=== PATIENT | male | born 1945 | race Caucasian/White ===

== ENCOUNTER 2020-02-04 12:44 | Emergency (ER) | payer OTHER, SELFPAY ==
[2020-02-04] VITALS (9 sets, daily range): BP systolic 108–131; BP diastolic 63–77; PULSE 61–89; RESP 14–22; TEMP 36.6; O2SAT 93–96
--- NOTE | ~2020-02-04 | XR_ITS ---
EXAMINATION: XR chest 1V portable DATE: 02/04/2020 13:42 INDICATION: Shortness of breath. TECHNIQUE: A single frontal view of the chest was obtained on 2 radiographs. COMPARISON: Chest 2 views 12/26/2014, CT abdomen and pelvis 03/28/2019, chest CT 07/06/2018 FINDINGS: The lungs are hyperexpanded, consistent with emphysema. There are airspace opacities in the mid and lower lung zones. No pleural effusion or pneumothorax. The heart size is normal. IMPRESSION: 1. Airspace opacities in the mid and lower lung zones, consistent with atelectasis/scarring versus pn eumonia. 2. Emphysema. Reviewed, dictated and finalized at location A. T OFFICER IMPRESSION: 1. Airspace opacities in the mid and lower lung zones, consistent with atelecta sis/scarring versus pneumonia. 2. Emphysema.
--- NOTE | 2020-02-04 12:53 | ECG_ITS ---
Measurements Intervals [place] Rate: 72 P: [place]: 0 QRS: -12 QRSD: 94 T: 6 QT: 394 QTc: 433 Interpretive Statements ATRIAL FIBRILLATION DELAYED PRECORDIAL R/S TRANSITION BASELINE WANDER- V4-V6 ABNORMAL ECG Electronically Signed On 02-04-2020 13:17:19 COMMUNITY SERVICE OFFICER by Jef Camacho D.O.
[2020-02-04 13:13] LABS: Basophils Percent Auto 0.2 % (0.2-1.2); Hematocrit 46.6 % (42.0-52.0); Hemoglobin 15.6 g/dL (14.0-18.0); Immature Granulocyte Absolute 0.02 K/mm3 (0.00-0.031); Immature Granulocyte Percent A 0.4 % (0-0.5); Lymphocytes Absolute Auto 0.62 K/mm3 (0.9-3.2); Lymphocytes Percent Auto 12.3 % (18.3-44.2); Mean Corpuscular HGB Conc 33.5 g/dl (32-36); Mean Corpuscular Volume 92.5 fl (80-100); Mean Platelet Volume 9.9 fl (7.4-10.4); Monocytes Absolute Auto 0.3 K/mm3 (0.1-0.6); Monocytes Percent Auto 5.3 % (2.6-8.5); Neutrophils Absolute Auto 4.1 K/mm3 (1.3-6.7); Neutrophils Percent Auto 81.8 % (45.5-73.1); Platelet Count Result 154 k/mm3 (150-375); Red Blood Count 5.04 M/mm3 (4.6-6.20); Red Cell Distribution Width 13.7 % (11.5-14.5); White Blood Count 5.1 K/mm3 (4.5-10.0)
[2020-02-04 13:41] LABS: Anion Gap 8 mmol/L (8-16); Blood Urea Nitrogen 15 mg/dL (9-20); Calcium 8.6 mg/dL (8.4-10.2); Carbon Dioxide 29 mmol/L (22-30); Chloride 99 mmol/L (98-107); Estimated CRCL calculation 79 ml/min; Estimated Glomerular Filt Rate > 60; Glucose 106 mg/dL (75-110); Sodium 136 mmol/L (137-145)
[2020-02-04 13:44] LABS: Potassium 4.5 mmol/L (3.4-5.0)
[2020-02-04] MEDS: SODIUM CHLORIDE 0.9% IV 1,000 ML 999 ML IV CONT (15:04)
--- NOTE | 2020-02-04 16:29 | ED.GENADULT ---
HPI - General Adult General Chief complaint: Shortness of Breath/Dyspnea Stated complaint: fever, diarrhea, sob Time Seen by Provider: 02/04/20 12:58 Source: patient Mode of arrival: ambulatory Limitations: no limitations History of Present Illness HPI narrative: 74-year-old with a history of hypertension, diabetes, COPD, GERD, Afib on Xarelto here with complaints of not feeling well occasional shortness of breath. Patient states that he lost his appetite, feels weak had occasional nausea. Patient states that he was tested for Covid approximately 10 days ago and it was negative however his and daughter both have Covid at this time. He presently denies any chest pain. He feels dehydrated. Onset (ago): day(s) (6) Exacerbating factors: none Associated symptoms: shortness of breath Related Data Home Medications Medication Instructions Recorded Confirmed fluticasone furoate-vilanterol INHALATION 03/28/19 [Breo Ellipta] losartan 03/28/19 nebivolol [Bystolic] mg 03/28/19 omeprazole 03/28/19 03/28/19 rivaroxaban [Xarelto] mg 03/28/19 Allergies Allergy/AdvReac Type Severity Reaction Status Date / Time diazepam Allergy Unknown Unknown Verified 02/04/20 13:39 Review of Systems Review of Systems: All systems reviewed & are unremarkable except as noted in HPI and below Constitutional: Constitutional: Reports no additional constitutional complaints Eyes: Eyes: Reports as per HPI ENT: Reports system reviewed and no additional complaints, except as documented Cardiovascular: Cardiovascular: Reports no additional cardiovascular complaints Gastrointestinal: Gastrointestinal: Reports no additional gastrointestinal complaints Musculoskeletal: Musculoskeletal: Reports no additional musculoskeletal complaints Neurologic: Reports system reviewed and no additional complaints, except as documented [facility] Past Medical History Medical History (Updated 02/04/20 @ 16:46 by Dakota Tapia MD) Arthritis Bladder cancer CHF (congestive heart failure) Clavicle fracture Closed left arm fracture COPD (chronic obstructive pulmonary disease) DDD (degenerative disc disease) GERD (gastroesophageal reflux disease) Hemorrhoids HTN (hypertension) Nasal fracture Nasal septal deviation Pulmonary embolism Sleep apnea Surgical History Surgical History H/O spinal fusion L3-L5 H/O transurethral resection of prostate History of cardiac catheterization History of left hip replacement History of left knee replacement History of right hip replacement Hx of cholecystectomy Hx of tonsillectomy Family History Family History Father Family history of malignant neoplasm Other Diabetes mellitus Social History Social History Years smoked: 50 Smoking status: Former smoker Tobacco type: cigarettes Second hand tobacco smoke exposure: Yes Smoking end date: 10/11/14 Additional smoking assessment comments: Pt smoked 2-3 packs per day for 50 years. Alcohol intake: current Exam Narrative: Exam Narrative: GENERAL: Well-appearing, well-nourished, and in no acute distress. HEAD: Normocephalic, atraumatic.t. NECK: Supple. CHEST: Clear to auscultation. No respiratory distress. HEART: Regular rate and rhythm. No murmur heard. Normal peripheral pulses. ABDOMEN: Soft, nontender, nondistended, normal active bowel sounds. EXTREMITIES: Normal range of motion. No edema. SKIN: Warm, dry, no rash. NEURO: No focal deficits. Alert and oriented x3. PSYCH: Normal mood and affect. Course Course Emergency Course: Patient states he is feeling slightly better after IV fluids infusion. I did inform him about his lab work. Advised him to continue his home medication. Take Tylenol for fever. Vital Signs Vital signs: Vital Signs Temperature 36.6 C 02/04/20 13:08 Pul
== END 2020-02-04 16:55 | disposition home or self-care (01) ==
PROVIDERS: Emergency Provider Family Medicine
DX: B34.9 Viral infection, unspecified (principal); R53.1 Weakness; I48.91 Unspecified atrial fibrillation; J43.9 Emphysema, unspecified; M19.90 Unspecified osteoarthritis, unspecified site; I11.0 Hypertensive heart disease with heart failure; I50.9 Heart failure, unspecified; K21.9 Gastro-esophageal reflux disease without esophagitis; G47.30 Sleep apnea, unspecified; Z85.51 Personal history of malignant neoplasm of bladder
CPT/HCPCS: 36415; 71045; 80048; 85025; 93005; 99284; J7030

== ENCOUNTER 2020-02-14 09:07 | Emergency (ER) | payer OTHER, SELFPAY ==
--- NOTE | ~2020-02-14 | CT_ITS ---
EXAMINATION: CTA chest PE protocol DATE: 02/14/2020 12:11 LONG FILLER CIGAR ROLLER MACHINE INDICATION: Shortness of breath TECHNIQUE: Computed tomographic angiography (CTA) of the chest was performed with 100 mL Omnipaque-35 0 intravenous contrast. The dose-length product was 1138.13 mGy-cm. Maximum intensity projection 3D-r econstructions of the aorta and other arteries were constructed by the technologist on a separate wor kstation. Automated exposure control and iterative reconstruction technique were employed. COMPARISON: CT dated 07/06/2018. FINDINGS: Study is technically adequate without evidence for pulmonary embolism. Small left pleural e ffusion. Borderline heart size. There is atherosclerosis of the aorta and coronary arteries. Severe emphysema. Patchy groundglass opacities are identified in both lungs, suspicious for pneumonia . Mild right hilar lymphadenopathy, likely reactive. IMPRESSION: 1. No evidence for pulmonary embolism. 2: Patchy groundglass opacities of both lungs, suspicious for pneumonia. 3: Severe emphysema. 4: Mild right hilar lymphadenopathy, likely reactive. Reviewed, dictated and finalized at location B. FILLER CIGAR ROLLER MACHINE
--- NOTE | ~2020-02-14 | XR_ITS ---
EXAMINATION: XR chest 1V portable DATE: 02/14/2020 10:02 INDICATION: Shortness of breath. COVID-19 pneumonia. TECHNIQUE: A single frontal view of the chest was obtained on 2 radiographs. COMPARISON: Chest single view 01/31/2020, chest 2 views 11/26/2014, CT abdomen and pelvis 03/28/2019 FINDINGS: There are airspace opacities in the mid and lower lung zones. No pleural effusion or pneumo thorax. Cardiomegaly is noted. IMPRESSION: 1. Stable airspace opacities in the mid and lower lung zones, consistent with pneumonia. 2. Cardiomegaly. Reviewed, dictated and finalized at location A. EWATER TECHNICIAN IMPRESSION: 1. Stable airspace opacities in the mid and lower lung zones, consistent with p neumonia. 2. Cardiomegaly.
--- NOTE | 2020-02-14 09:42 | ECG_ITS ---
Measurements Intervals [place] Rate: 85 P: [place]: 0 QRS: -6 QRSD: 93 T: 31 QT: 355 QTc: 423 Interpretive Statements ATRIAL FIBRILLATION BORDERLINE T WAVE ABNORMALITY- INFERIOR LEADS BASELINE ARTIFACT- I, II, III, AVR, AVL, AVF, V1-V3 ABNORMAL ECG Electronically Signed On 02-14-2020 10:41:02 TOBACCO CLASSER by Jef Camacho D.O.
[2020-02-14 09:43] VITALS: BP 138/90; PULSE 84; RESP 26; TEMP 37.2; O2SAT 98
[2020-02-14 09:49] VITALS: PULSE 84
[2020-02-14 09:52] LABS: Basophils Percent Auto 0.2 % (0.2-1.2); Hematocrit 41.4 % (42.0-52.0); Hemoglobin 13.8 g/dL (14.0-18.0); Immature Granulocyte Absolute 0.15 K/mm3 (0.00-0.031); Immature Granulocyte Percent A 0.9 % (0-0.5); Lymphocytes Absolute Auto 0.76 K/mm3 (0.9-3.2); Lymphocytes Percent Auto 4.3 % (18.3-44.2); Mean Corpuscular HGB Conc 33.3 g/dl (32-36); Mean Corpuscular Hemoglobin 30.9 pg (26-34); Mean Corpuscular Volume 92.6 fl (80-100); Mean Platelet Volume 9.6 fl (7.4-10.4); Monocytes Absolute Auto 1.1 K/mm3 (0.1-0.6); Monocytes Percent Auto 6.5 % (2.6-8.5); Neutrophils Absolute Auto 15.4 K/mm3 (1.3-6.7); Neutrophils Percent Auto 88.1 % (45.5-73.1); Platelet Count Result 351 k/mm3 (150-375); Red Blood Count 4.47 M/mm3 (4.6-6.20); Red Cell Distribution Width 13.6 % (11.5-14.5); White Blood Count 17.5 K/mm3 (4.5-10.0)
[2020-02-14 10:26] LABS: Anion Gap 6 mmol/L (8-16); Blood Urea Nitrogen 12 mg/dL (9-20); Calcium 8.6 mg/dL (8.4-10.2); Carbon Dioxide 29 mmol/L (22-30); Chloride 101 mmol/L (98-107); Estimated CRCL calculation 80 ml/min; Estimated Glomerular Filt Rate > 60; Glucose 122 mg/dL (75-110); Potassium 4.7 mmol/L (3.4-5.0); Sodium 136 mmol/L (137-145)
[2020-02-14 10:28] VITALS: BP 123/83; PULSE 106; RESP 24; O2SAT 93
[2020-02-14 10:48] VITALS: TEMP 37.7
[2020-02-14] MEDS: FAMOTIDINE 20 MG/2 ML VIAL IV PUSH (10:48)
[2020-02-14 10:52] LABS: Alveolar/Arterial O2 Gradient 49.5 mmHg; Base Excess ABG 2.7 mEq/l (+/-2.0); Carboxyhemoglobin 1.3 % THb (0-2.0); Fractional Inspired Oxygen 21 %; HCO3 ABG 24.7 mEq/l (22.0-26.0); Methemoglobin ABG 0.2 %THb (0-1.5); Oxygen Content ABG 18.7 %vol (16.0-22.0); Oxygen Saturation ABG 94.5 % (95.0-100.0); Oxyhemoglobin 92.4 % THb (90.0-100.0); PCO2 ABG 30.9 mmHg (35.0-45.0); PO2 ABG 63.2 mmHg (80.0-100.0); PO2 FiO2 Ratio Arterial Blood 3.01 %; Reduced Hemoglobin 6.1 %THb (0-5.0); Total Hemoglobin 14.4 g/dL (12.0-18.0); pH ABG 7.521 (7.350-7.450)
[2020-02-14 10:53] LABS: Device ROOM AIR; Modified Allen's Test Pass; Site Drawn RIGHT RADIAL
[2020-02-14 11:05] LABS: INR 2.4; Lactic Acid Reflex 1.2 mmol/L (0.7-2.1); Prothrombin Time 26.6 Seconds (11.1-14.7)
[2020-02-14 11:05] LABS: Add Urine Microscopic? YES; Appearance Urine Clear (Clear); Bacteria Urine Trace /hpf; Bilirubin Urine Negative (Negative); Blood Urine Negative (Negative); Color Urine Yellow (Yellow); Glucose Urine UA Negative (Negative); Ketones Urine Negative (Negative); Leukocyte Esterase Ur Negative LEU/UL (Negative); Nitrate Urine Negative (Negative); Protein Urine 1+ mg/dL (Negative); RBC Urine 0-2 /hpf (0-2); Specific Grav Ur 1.012 (1.001-1.035); WBC Urine 0-3 /hpf
[2020-02-14 11:06] LABS: Partial Thromboplastin Time 41.5 SECONDS (22.3-36.8)
[2020-02-14 11:08] LABS: D Dimer 2.28 ug/mL (<0.48)
--- NOTE | 2020-02-14 11:08 | ED.GENADULT ---
HPI - General Adult General Chief complaint: Shortness of Breath/Dyspnea Stated complaint: Covid +, SOB Time Seen by Provider: 02/14/20 10:06 Source: patient Mode of arrival: ambulatory Limitations: no limitations History of Present Illness HPI narrative: Patient is a 74-year-old male who presents to emergency department with dyspnea noting dyspnea at rest and with activity worsened last night is felt ill for 4 weeks had recent diagnosis of Covid has a history of COPD as well as atrial fibrillation notes that he has been compliant with his medication patient notes that last night he had increase difficulty with breathing presents to emergency department patient denies vomiting does note loose stools notes some irritation of the chest worse with coughing. Patient denies tobacco abuse on arrival patient is ill-appearing but in no apparent distress patient has been taking [id number] medications with minimal improvement Related Data Home Medications Medication Instructions Recorded Confirmed fluticasone furoate-vilanterol INHALATION 03/28/19 [Breo Ellipta] losartan 03/28/19 nebivolol [Bystolic] mg 03/28/19 omeprazole 03/28/19 03/28/19 rivaroxaban [Xarelto] mg 03/28/19 Allergies Allergy/AdvReac Type Severity Reaction Status Date / Time diazepam Allergy Unknown Unknown Verified 02/14/20 09:45 Review of Systems Review of Systems: All systems reviewed & are unremarkable except as noted in HPI and below PMFSH Past Medical History Medical History Arthritis Bladder cancer CHF (congestive heart failure) Clavicle fracture Closed left arm fracture COPD (chronic obstructive pulmonary disease) DDD (degenerative disc disease) GERD (gastroesophageal reflux disease) Hemorrhoids HTN (hypertension) Nasal fracture Nasal septal deviation Pulmonary embolism Sleep apnea Surgical History Surgical History H/O spinal fusion L3-L5 H/O transurethral resection of prostate History of cardiac catheterization History of left hip replacement History of left knee replacement History of right hip replacement Hx of cholecystectomy Hx of tonsillectomy Family History Family History Father Family history of malignant neoplasm Other Diabetes mellitus Social History Social History Years smoked: 50 Smoking status: Former smoker Tobacco type: cigarettes Second hand tobacco smoke exposure: Yes Smoking end date: 10/11/14 Additional smoking assessment comments: Pt smoked 2-3 packs per day for 50 years. Alcohol intake: current Gender identity (if verbalized by the patient): Male Exam Narrative: Exam Narrative: GENERAL: Ill-appearing, well-nourished, and in no acute distress. HEAD: Normocephalic, atraumatic. EYES: PERRLA and EOMI. ENT: Nares clear, no rhinorrhea or epistaxis. Mucous membranes moist. NECK: Supple. No adenopathy or masses. CHEST: Diminished on auscultation. No respiratory distress. No wheezes rales or rhonchi HEART: Irregularly irregular rate and rhythm, normal rate. No murmur heard. Normal peripheral pulses. EXTREMITIES: Normal range of motion. No edema. SKIN: Warm, dry, no rash. NEURO: No focal deficits. Alert and oriented x3. PSYCH: Normal mood and affect. Course Course Emergency Course: Patient evaluated in the emergency department felt appropriate for outpatient reevaluation given medications in the ER to include steroids and fluids patient is afebrile nontoxic-appearing at this time in no distress. Patient will continue to use his albuterol inhaler will have some additional medications added advised to follow with primary care and given reasons to return Vital Signs Vital signs: Vital Signs Temperature 99 F 02/14/20 09:43 Pulse Rate 84 02/14/20 09:43
[2020-02-14 11:19] LABS: CRP 20.8 mg/dL (<1.0)
[2020-02-14 11:44] LABS: Troponin I < 0.012 ng/mL (0.000-0.034)
[2020-02-14 14:18] VITALS: BP 109/66; PULSE 88; RESP 16; O2SAT 98
== END 2020-02-14 14:18 | disposition home or self-care (01) ==
PROVIDERS: Emergency Medicine Emergency Medical Services; Emergency Provider Emergency Medicine
DX: U07.1 COVID-19 (principal); I48.91 Unspecified atrial fibrillation; Z79.01 Long term (current) use of anticoagulants; Z85.51 Personal history of malignant neoplasm of bladder; I50.9 Heart failure, unspecified; K21.9 Gastro-esophageal reflux disease without esophagitis; I11.0 Hypertensive heart disease with heart failure; Z86.711 Personal history of pulmonary embolism; G47.30 Sleep apnea, unspecified; Z96.643 Presence of artificial hip joint, bilateral; Z96.652 Presence of left artificial knee joint; Z98.1 Arthrodesis status; Z87.891 Personal history of nicotine dependence; R91.8 Other nonspecific abnormal finding of lung field; I51.7 Cardiomegaly; R94.31 Abnormal electrocardiogram [ECG] [EKG]
CPT/HCPCS: 36415; 36600; 71045; 71275; 80048; 81001; 82375; 82805; 83050; 83605; 84484; 85025; 85380; 85610; 85730; 86140; 87040; 93005; 96365; 96375; 99284; J0131; Q9967

== ENCOUNTER 2020-07-03 09:35 | Outpatient (CLI) | payer OTHER, SELFPAY ==
[2020-07-03 11:00] VITALS: O2SAT 95
[2020-07-03 11:05] VITALS: O2SAT 93
[2020-07-03 11:15] VITALS: O2SAT 94
--- NOTE | 2020-07-05 13:50 | WPDPFTINT ---
PFT Interpretation This PFT met all criteria for ATS standards and reproducibility FEV/FVC post bronchodilator 64% FEV1 70% FVC 83% TLC 74% RV 66% RV/TLC 33% DLCO 58% when adjusted for alveolar volume but not adjusted for hemoglobin Flow volume loops showed significant expiratory coving Impression: probable moderate airflow obstruction with a restrictive ventilatory defect as well as moderately reduced diffusion capacity. Clinical correlation is advised. PFT Procedure Performed PFT Procedure Performed Spirometry with Pre/Post Bronchodilator Plethysmography (Lung Vol) Diffusing Cap (DLCO) Flow Vol Loop
== END 2020-07-03 09:36 | disposition home or self-care (01) ==
PROVIDERS: Visit Provider Internal Medicine Pulmonary Disease
DX: J44.9 Chronic obstructive pulmonary disease, unspecified (principal); R06.00 Dyspnea, unspecified; R94.2 Abnormal results of pulmonary function studies
CPT/HCPCS: 94060; 94618; 94726; 94729

== ENCOUNTER → 2020-07-03 12:27 | Outpatient (CLI) | payer OTHER, SELFPAY ==
--- NOTE | ~2020-07-03 | CT_ITS ---
EXAMINATION: CT diagnostic chest wo con DATE: 07/03/2020 12:51 INDICATION: Shortness of breath. Covid 19 infection in March 2020. History of COPD. TECHNIQUE: Computed tomography (CT) of the chest was performed without intravenous contrast. Automate d exposure control and iterative reconstruction technique were employed. Exam dose: 701.04 mGy-cm to roro exam DLP. COMPARISON: 02/2020 CT pulmonary scan FINDINGS: Cardiomegaly. No pericardial effusion. Mild thoracic aortic aneurysm, the ascending aorta measuring up to 4.5 cm diameter, the aortic arch u p to 3.3 cm diameter. There is aortic and great vessel calcification. There are aortopulmonary window and bilateral calcified hilar nodes consistent with old pulmonary gra nulomatous disease. There are calcified splenic granulomas as well. No hilar or mediastinal mass lesi on or lymphadenopathy. Prominent emphysematous changes are noted, more severe in the upper lobes. Stable mild bilateral apic al, middle lobe scarring. There is mild infiltrate, atelectasis and/or scarring at the lung bases, meghan th lower lobes. No pleural effusion or pneumothorax. There is severe bilateral glenohumeral osteoarthritis. Diffuse idiopathic skeletal hyperostosis of the thoracolumbar spine and severe degenerative disc dise ase of the included lower cervical spine. IMPRESSION: Prominent emphysema Bilateral apical, middle lobe and probable lower lobe scarring. Bibasilar mild infiltrate and/or atel ectasis is suggested. Mild thoracic aortic aneurysm Reviewed, dictated and finalized at Location A. Reviewed, dictated and finalized at location A. IMPRESSION: Prominent emphysema Bilateral apical, middle lobe and probable lower lobe scarring. Bibasilar mild infiltrate and/or atelectasis is suggested. Mild thoracic aortic aneurysm
== END ==
PROVIDERS: Visit Provider Internal Medicine Pulmonary Disease
DX: U07.1 COVID-19 (principal); I71.2 Thoracic aortic aneurysm, without rupture; J43.9 Emphysema, unspecified
CPT/HCPCS: 71250

== ENCOUNTER → 2020-08-21 06:39 | Outpatient (CLI) | payer OTHER, SELFPAY ==
[2020-08-21 19:50] LABS: SARS-CoV-2 RNA PCR Negative
== END ==
PROVIDERS: PCP Family Medicine Sports Medicine
DX: R68.89 Other general symptoms and signs (principal); Z20.822 Contact with and (suspected) exposure to COVID-19
CPT/HCPCS: C9803; U0003; U0005

== ENCOUNTER → 2021-07-19 09:03 | Outpatient (CLI) | payer OTHER, SELFPAY ==
--- NOTE | ~2021-07-19 | CT_ITS ---
EXAMINATION: CT lung screening DATE: 07/19/2021 09:21 INDICATION: Personal history of nicotine dependence, prior smoker with 100 pack year history TECHNIQUE: Computed tomography (CT) of the chest was performed without intravenous contrast. The dose -length product (DLP) was 373.82 mGy-cm. Automated exposure control and iterative reconstruction tech [employer] were employed. COMPARISON: 07/03/2020 FINDINGS: There is moderate emphysema. There is a chronic area of rounded atelectasis in the left low er lobe. Areas of scarring are seen in the right middle lobe and lingula. The lungs are free of acute airspace opacities. No suspicious pulmonary nodules are identified. No pathologically enlarged thora cic lymph nodes are identified. The heart size is normal. The gallbladder is surgically absent. There is moderate thoracic spondylosis. IMPRESSION: 1. Lung-RADS category 1: Negative. Continue annual screening with noncontrast low-dose chest CT in 12 months. Reviewed, dictated and finalized at location A. IMPRESSION: 1. Lung-RADS category 1: Negative. Continue annual screening with noncontrast l ow-dose chest CT in 12 months.
== END ==
PROVIDERS: PCP Family Medicine Sports Medicine; Visit Provider Nurse Practitioner Family
DX: Z87.891 Personal history of nicotine dependence (principal)
CPT/HCPCS: 71271

== ENCOUNTER → 2022-01-26 07:47 | Outpatient (CLI) | payer OTHER, SELFPAY ==
--- NOTE | ~2022-01-26 | CT_ITS ---
EXAMINATION: CT diagnostic chest w con DATE: 01/26/2022 08:32 INDICATION: Thoracic aortic aneurysm without rupture, history of bladder cancer TECHNIQUE: Transaxial computed tomographic images of the chest were obtained after the administration of 75 cc of Omnipaque 350 intravenous contrast. The dose-length product (DLP) was 717.27 mGy-cm. Ite rative reconstruction was used. COMPARISON: 07/19/2021 FINDINGS: The ascending aorta measures up to 4.5 cm. There is no dissection. Moderate emphysema is no adeel. There are areas of scarring in the lingula and right middle lobe. There is chronic rounded atele ctasis in the left lower lobe without significant change. There is a 7 mm nodule in the right upper l obe on image 58. No pleural effusion or pneumothorax. No pathologically enlarged thoracic lymph nodes are identified. The heart size is normal. Calcified left hilar lymph nodes are consistent with old g ranulomatous disease. The gallbladder is surgically absent. There is a 3.5 cm cyst of the left kidney . There is moderate thoracic spondylosis. IMPRESSION: 1. Dilated ascending aorta measuring up to 4.5 cm without dissection. 2. 7 mm nodule of the right upper lobe. Follow-up low-dose CT in six months is recommended. Reviewed, dictated and finalized at location F. HROOM MONITOR
[2022-01-26 08:22] LABS: Estimated Glomerular Filt Rate > 60
== END ==
PROVIDERS: PCP Family Medicine Sports Medicine
DX: I71.20 Thoracic aortic aneurysm, without rupture, unspecified (principal); R91.1 Solitary pulmonary nodule
CPT/HCPCS: 71260; Q9967

== ENCOUNTER 2022-06-05 22:49 | Emergency (ER) | payer OTHER, SELFPAY ==
[2022-06-05] VITALS (11 sets, daily range): BP systolic 136–167; BP diastolic 82–120; PULSE 70–84; RESP 14–22; TEMP 36.4; O2SAT 91–97
--- NOTE | ~2022-06-05 | XR_ITS ---
Portable chest x-ray Comparison: 02/14/2020 Clinical History: Diaphoretic, shortness of breath Findings: Minimal haziness in the lungs is present, somewhat similar to prior exam. No definite pleu ral effusions. Cardiomediastinal silhouette is stable. Bones and soft tissues are unremarkable. Impression: Mild bibasilar and perihilar haziness. Correlate for mild pulmonary edema versus or possibly chronic pulmonary disease. Reviewed, dictated and finalized at location . Impression: Mild bibasilar and perihilar haziness. Correlate for mild pulmonary edema versu s or possibly chronic pulmonary disease.
--- NOTE | 2022-06-05 23:26 | ECG_ITS ---
Measurements Intervals [place] Rate: 73 P: [place]: 0 QRS: -11 QRSD: 104 T: 58 QT: 403 QTc: 445 Interpretive Statements ATRIAL FIBRILLATION ABNORMAL ECG COMPARED TO ECG 02/14/2020 09:39:23 NO SIGNIFICANT CHANGES Electronically Signed On 06-06-2022 6:47:52 CDT by Jef Camacho D.O.
[2022-06-05] MEDS: SODIUM CHLORIDE 0.9% IV 1,000 ML 999 ML IV CONT (23:33)
[2022-06-05 23:53] LABS: Basophils Percent Auto 0.5 % (0.2-1.2); Eosinophils Absolute Auto 0.2 K/mm3 (0-0.3); Hematocrit 45.1 % (42.0-52.0); Immature Granulocyte Absolute 0.04 K/mm3 (0.00-0.031); Immature Granulocyte Percent A 0.5 % (0-0.5); Lymphocytes Percent Auto 12.3 % (18.3-44.2); Mean Corpuscular HGB Conc 33.3 g/dl (32-36); Mean Corpuscular Volume 96.2 fl (80-100); Mean Platelet Volume 10.6 fl (7.4-10.4); Monocytes Absolute Auto 0.6 K/mm3 (0.1-0.6); Monocytes Percent Auto 7.8 % (2.6-8.5); Neutrophils Absolute Auto 5.6 K/mm3 (1.3-6.7); Neutrophils Percent Auto 76.9 % (45.5-73.1); Platelet Count Result 219 k/mm3 (150-375); Red Blood Count 4.69 M/mm3 (4.6-6.20); Red Cell Distribution Width 13.8 % (11.5-14.5); White Blood Count 7.3 K/mm3 (4.5-10.0)
[2022-06-06] VITALS (19 sets, daily range): BP systolic 102–160; BP diastolic 71–115; PULSE 61–81; RESP 13–26; O2SAT 92–98
[2022-06-06 00:02] LABS: Alanine Aminotransferase 26 U/L (6-50); Albumin Level 4.5 g/dL (3.5-5.1); Alkaline Phosphatase 103 U/L (38-126); Anion Gap 6 mmol/L (8-16); Aspartate Amino Transferase 30 U/L (17-59); Bilirubin,Total 1.2 mg/dL (0.2-1.3); Blood Urea Nitrogen 18 mg/dL (9-20); Calcium 8.8 mg/dL (8.4-10.2); Carbon Dioxide 28 mmol/L (22-30); Chloride 105 mmol/L (98-107); Estimated CRCL calculation 89 ml/min; Estimated Glomerular Filt Rate > 60; Glucose 114 mg/dL (65-110); Magnesium 2.3 mg/dL (1.6-2.3); Potassium 4.2 mmol/L (3.4-5.0); Sodium 139 mmol/L (137-145)
[2022-06-06 00:03] LABS: Lactic Acid Reflex 1.1 mmol/L (0.7-2.0)
[2022-06-06 00:14] LABS: Troponin I < 0.012 ng/mL (0.000-0.034)
[2022-06-06 00:16] LABS: INR 1.7; Partial Thromboplastin Time 38.1 SECONDS (22.3-36.8); Prothrombin Time 19.4 Seconds (11.1-14.7)
[2022-06-06 00:47] LABS: Appearance Urine Clear (Clear); Bilirubin Urine Negative (Negative); Blood Urine Negative (Negative); Color Urine Yellow (Yellow); Glucose Urine UA Negative (Negative); Ketones Urine Negative (Negative); Leukocyte Esterase Ur Negative LEU/UL (Negative); Nitrate Urine Negative (Negative); Protein Urine Negative (Negative); Specific Grav Ur 1.015 (1.001-1.035)
--- NOTE | 2022-06-06 01:03 | ED.GENADULT ---
HPI - General Adult General Chief complaint: Dizziness Stated complaint: Feeling faint Time Seen by Provider: 06/05/22 23:04 History of Present Illness HPI narrative: Patient is a 76-year-old gentleman who presents the emergency department with chief complaint of near syncope. Patient reports that he was sitting down and started to have a lightheaded sensation the patient states that he got very diaphoretic when this happened and reports that the symptoms have subsequently improved. Patient states he is intermittently having some episodes where he still feels lightheaded but denies chest pain or shortness of breath. Related Data Home Medications Medication Instructions Recorded Confirmed nebivolol 10 mg tablet (Bystolic) mg 03/28/19 01/03/22 omeprazole 20 mg capsule,delayed 03/28/19 01/03/22 release rivaroxaban 20 mg tablet (Xarelto) mg 03/28/19 01/03/22 losartan 50 mg tablet 50 mg PO DAILY 07/05/21 01/03/22 Allergies Allergy/AdvReac Type Severity Reaction Status Date / Time diazepam Allergy Unknown Unknown Verified 01/03/22 09:59 Review of Systems Review of Systems: A 10 system review of systems was completed on the patient and is negative except for what is stated in the HPI. Nursing and ancillary documentation was reviewed. [facility] Past Medical History Medical History Arthritis Bladder cancer CHF (congestive heart failure) Clavicle fracture Closed left arm fracture COPD (chronic obstructive pulmonary disease) DDD (degenerative disc disease) GERD (gastroesophageal reflux disease) Hemorrhoids HTN (hypertension) Nasal fracture Nasal septal deviation Pulmonary embolism Sleep apnea Surgical History Surgical History H/O spinal fusion L3-L5 H/O transurethral resection of prostate History of cardiac catheterization History of left hip replacement History of left knee replacement History of right hip replacement Hx of cholecystectomy Hx of tonsillectomy Family History Family History Father Family history of malignant neoplasm Other Diabetes mellitus Social History Social History Smoking packs per day: 3 Smoking cigarettes per day: 60.0 Years smoked: 50 Smoking pack-years: 150.00 Smoking status: Former smoker Tobacco type: cigarettes Second hand tobacco smoke exposure: Yes Smoking end date: 10/11/13 Additional smoking assessment comments: Pt smoked 2-3 packs per day for 50 years. Alcohol intake: current Drinks per week: 30 Gender identity (if verbalized by the patient): Male Exam Narrative: GENERAL: Well-appearing, well-nourished, and in no acute distress. HEAD: Normocephalic, atraumatic. EYES: PERRLA and EOMI. ENT: Nares clear, no rhinorrhea or epistaxis. Mucous membranes moist. NECK: Supple. CHEST: Clear to auscultation. No respiratory distress. HEART: Regular rate and rhythm. No murmur heard. Normal peripheral pulses. ABDOMEN: Soft, nontender, nondistended, normal active bowel sounds. EXTREMITIES: Normal range of motion. No edema. SKIN: Warm, dry, no rash. NEURO: No focal deficits. Alert and oriented x3. PSYCH: Normal mood and affect. Course Vital Signs Vital signs: Vital Signs Temperature 36.4 C 06/05/22 22:54 Pulse Rate 74 06/05/22 22:54 Respiratory Rate 20 06/05/22 22:54 Blood Pressure 167/98 H 06/05/22 22:54 Pulse Oximetry 97 06/05/22 22:54 Oxygen Delivery Room Air 06/05/22 22:54 Temperature 36.4 C 06/05/22 22:54 Pulse Rate 69 06/06/22 02:17 Respiratory Rate 13 06/06/22 02:17 Blood Pressure 146/71 H 06/06/22 02:17 Pulse Oximetry 97 06/06/22 02:17 Oxygen Delivery Room Air 06/05/22 23:05 Medical Decision Making MDM Narrative Medical decision making narr
[2022-06-06 01:36] LABS: Add Urine Microscopic? NO
[2022-06-06 02:55] LABS: Troponin I < 0.012 ng/mL (0.000-0.034)
== END 2022-06-06 03:21 | disposition home or self-care (01) ==
PROVIDERS: Emergency Provider Emergency Medicine; PCP Family Medicine Sports Medicine
DX: R55 Syncope and collapse (principal); I50.9 Heart failure, unspecified; J44.9 Chronic obstructive pulmonary disease, unspecified; I11.0 Hypertensive heart disease with heart failure; G47.30 Sleep apnea, unspecified; K21.9 Gastro-esophageal reflux disease without esophagitis; M19.90 Unspecified osteoarthritis, unspecified site; Z98.1 Arthrodesis status; Z90.79 Acquired absence of other genital organ(s); Z96.652 Presence of left artificial knee joint; Z96.643 Presence of artificial hip joint, bilateral; Z85.51 Personal history of malignant neoplasm of bladder; Z86.711 Personal history of pulmonary embolism; Z87.891 Personal history of nicotine dependence; Z79.01 Long term (current) use of anticoagulants; I48.91 Unspecified atrial fibrillation
CPT/HCPCS: 36415; 71045; 80053; 81003; 83605; 83735; 84484; 85025; 85610; 85730; 93005; 96360; 99283; J7030

== ENCOUNTER → 2022-07-29 13:01 | Outpatient (CLI) | payer OTHER, SELFPAY ==
--- NOTE | ~2022-07-29 | CT_ITS ---
EXAMINATION:CT diagnostic chest wo con DATE: 07/29/2022 13:23 INDICATION: Pulmonary nodule. TECHNIQUE: Computed tomography (CT) of the chest was performed without intravenous contrast. Automate d exposure control and iterative reconstruction technique were employed. The dose-length product (DLP ) was 661.98 mGy-cm. COMPARISON: Chest CT 01/26/2022 FINDINGS: There is moderate emphysema. There is mild scarring at left lung apex. There are chronic pe ripheral airspace opacities in the right middle lobe and lower lobes and lingula with septal thickeni ng, consistent with chronic lung disease. No bronchiectasis or honeycombing. The previously described right upper lobe nodule is no longer present. No pleural effusion. Cardiomegaly is noted. No pericar dial effusion. There are coronary artery calcifications. Calcified hilar and mediastinal lymph nodes are consistent with old granulomatous disease. There is ectasia of ascending aorta measuring 4.5 cm w ithout change. There is severe thoracic spondylosis. IMPRESSION: 1. Moderate emphysema and mild chronic lung disease. Reviewed, dictated and finalized at location A.
== END ==
PROVIDERS: PCP Nurse Practitioner Family; Visit Provider Nurse Practitioner Family
DX: R91.1 Solitary pulmonary nodule (principal); Z87.891 Personal history of nicotine dependence; J43.9 Emphysema, unspecified
CPT/HCPCS: 71250

== ENCOUNTER 2024-02-06 18:01 | Observation (INO) | payer OTHER, SELFPAY ==
--- NOTE | ~2024-02-06 | XR_ITS ---
EXAMINATION: XR chest 2V Exam Date/Time: 02/06/2024 18:47 DRILLING SUPERINTENDENT HISTORY: shortness of breath Comparison: 06/05/2022. RESULT: Lines, tubes, and devices: None. Lungs and pleura: Moderate diffuse reticular opacities with indistinct vessels. Mild bilateral costo phrenic angle blunting. Cardiomediastinal silhouette: Stable. Other: No acute osseous or upper abdominal finding. IMPRESSION: Moderate interstitial edema. Small bilateral pleural effusions. Reviewed, dictated and finalized at location K. LING SUPERINTENDENT
--- NOTE | ~2024-02-06 | CT_ITS ---
EXAMINATION:CT diagnostic chest w con DATE: 02/07/2024 14:21 INDICATION: Hypoxia. TECHNIQUE: Computed tomography (CT) of the chest was performed with 75 mL Omnipaque 350 intravenous c ontrast. Automated exposure control and iterative reconstruction technique were employed. The dose-le ngth product (DLP) was 708.53 mGy-cm. COMPARISON: Chest CT 07/29/2022 FINDINGS: There is moderate emphysema. There are centrilobular nodules in all lobes with a lower lung predominance, consistent with pneumonia. There is mild peripheral scarring in the inferior lungs. Th ere is mild bronchiectasis in the inferior lungs. No pleural effusion. Cardiomegaly is noted. There a re coronary artery calcifications. No pericardial effusion. There is mild mediastinal lymphadenopathy , likely reactive. There are changes of cholecystectomy. There is a 3.5 cm cyst in left kidney. Calci fications in the spleen are consistent with old granulomatous disease. There is severe thoracic and l umbar spondylosis. IMPRESSION: 1. Bilateral pneumonia with a lower lung predominance. 2. Moderate emphysema. 3. Mild mediastinal lymphadenopathy, likely reactive. Reviewed, dictated and finalized at location A. DIRECTOR
[2024-02-06 18:02] VITALS: BP 170/90; PULSE 92; RESP 33; TEMP 37.8; O2SAT 95
[2024-02-06 18:10] VITALS: O2SAT 93
--- NOTE | 2024-02-06 18:13 | ECG_ITS ---
Test Date: 2024-02-06 18:29:54 Measurements Intervals [place] Rate: 91 P: 0 TN: 0 QRS: -18 QRSD: 92 T: 69 QT: 334 QTc: 412 Interpretive Statements ATRIAL FIBRILLATION DELAYED PRECORDIAL R/S TRANSITION BORDERLINE ST-T WAVE ABNORMALITY- LAT/HIGH LAT LEADS BASELINE ARTIFACT- I, II, III, AVR, AVL, AVF ABNORMAL ECG No previous ECG available for comparison Electronically Signed On 02-06-2024 19:15:20 AUTOMOBILE ASSEMBLY SUPERVISOR by Jef Camacho D.O.
[2024-02-06 18:32] LABS: Basophils Absolute Auto 0.1 K/mm3 (0.0-0.1); Basophils Percent Auto 0.5 % (0.2-1.2); Eosinophils Percent Auto 0.2 % (0-4.4); Hematocrit 45.7 % (42.0-52.0); Immature Granulocyte Absolute 0.03 K/mm3 (0.00-0.031); Immature Granulocyte Percent A 0.3 % (0-0.5); Lymphocytes Absolute Auto 0.73 K/mm3 (0.9-3.2); Lymphocytes Percent Auto 7.6 % (18.3-44.2); Mean Corpuscular HGB Conc 32.8 g/dl (32-36); Mean Corpuscular Hemoglobin 30.8 pg (26-34); Mean Corpuscular Volume 93.8 fl (80-100); Mean Platelet Volume 9.9 fl (7.4-10.4); Monocytes Percent Auto 10.4 % (2.6-8.5); Neutrophils Absolute Auto 7.8 K/mm3 (1.3-6.7); Platelet Count Result 231 k/mm3 (150-375); Red Blood Count 4.87 M/mm3 (4.6-6.20); Red Cell Distribution Width 15.6 % (11.5-14.5); White Blood Count 9.6 K/mm3 (4.5-10.0)
[2024-02-06 18:48] LABS: Alanine Aminotransferase 21 U/L (6-50); Albumin Level 4.6 g/dL (3.5-5.1); Alkaline Phosphatase 112 U/L (38-126); Anion Gap 9 mmol/L (4-12); Aspartate Amino Transferase 41 U/L (17-59); Bilirubin,Total 1.8 mg/dL (0.2-1.3); Blood Urea Nitrogen 22 mg/dL (9-20); Calcium 9.1 mg/dL (8.4-10.2); Carbon Dioxide 27 mmol/L (22-30); Chloride 103 mmol/L (98-107); Estimated CRCL calculation 61 ml/min; Estimated Glomerular Filt Rate > 60; Glucose 111 mg/dL (65-110); Potassium 4.4 mmol/L (3.4-5.0); Sodium 139 mmol/L (137-145)
--- NOTE | 2024-02-06 19:32 | ED.SOB ---
HPI - SOB/Dyspnea General Chief Complaint: Shortness of Breath/Dyspnea Stated Complaint: SOB Time Seen by Provider: 02/06/24 18:24 History of Present Illness HPI Narrative: Patient is 78-year-old male who presents to the ER with shortness of breath. Associated with productive cough. Ongoing over the last week but markedly worsening over last day. He cannot walk 6 ft without being out of breath. He has been having fevers with alternating chills and sweats. No vomiting. Related Data Home Medications Medication Instructions Recorded Confirmed nebivolol 10 mg tablet (Bystolic) mg 03/28/19 11/02/23 omeprazole 20 mg capsule,delayed 03/28/19 11/02/23 release rivaroxaban 20 mg tablet (Xarelto) mg 03/28/19 11/02/23 losartan 100 mg tablet 100 mg PO DAILY 11/02/23 11/02/23 Allergies Allergy/AdvReac Type Severity Reaction Status Date / Time diazepam Allergy Unknown Unknown Verified 11/02/23 08:29 Review of Systems Review of Systems: All systems reviewed & are unremarkable except as noted in HPI and below Constitutional: Constitutional: Reports no additional constitutional complaints ENT: Reports system reviewed and no additional complaints, except as documented Cardiovascular: Cardiovascular: Reports no additional cardiovascular complaints Respiratory: Respiratory: Reports cough and Reports dyspnea Gastrointestinal: Gastrointestinal: Reports no additional gastrointestinal complaints [facility] Past Medical History Medical History Arthritis Bladder cancer CHF (congestive heart failure) Clavicle fracture Closed left arm fracture COPD (chronic obstructive pulmonary disease) DDD (degenerative disc disease) GERD (gastroesophageal reflux disease) Hemorrhoids HTN (hypertension) Nasal fracture Nasal septal deviation Pulmonary embolism Sleep apnea Surgical History Surgical History H/O spinal fusion L3-L5 H/O transurethral resection of prostate History of cardiac catheterization History of left hip replacement History of left knee replacement History of right hip replacement Hx of cholecystectomy Hx of tonsillectomy Family History Family History Father Family history of malignant neoplasm Other Diabetes mellitus Social History Social History Smoking packs per day: 3 Smoking cigarettes per day: 60.0 Years smoked: 50 Smoking pack-years: 150.00 Smoking status: Former smoker Tobacco type: cigarettes Second hand tobacco smoke exposure: Yes Smoking end date: 10/11/13 Additional smoking assessment comments: Pt smoked 2-3 packs per day for 50 years. Alcohol intake: current Drinks per week: 30 Gender identity (if verbalized by the patient): Male Exam Narrative: GENERAL: Uncomfortable-appearing, well-nourished, and in no acute distress. HEAD: Normocephalic, atraumatic. ENT: Mucous membranes moist. CHEST: coarse rales left lower and mid lung field, right lung field clear. Increased respiratory rate. HEART: Irregularly irregular rate and rhythm. Normal peripheral pulses. ABDOMEN: Soft, nontender, nondistended. EXTREMITIES: Normal range of motion. No edema. SKIN: Warm, dry, no rash. NEURO: Alert and oriented x3. PSYCH: Normal mood and affect. Course Course Emergency Course: Patient resting comfortably. When he attempts to get up and walk immediately drops to 87% while on room air. Patient's lab work shows no leukocytosis and no abnormality in the electrolytes. Renal function normal. BNP is elevated. His possible he has asymmetric pulmonary edema causing the abnormal lung sounds but given his fever and cough as well as chills it is felt he is more likely a pneumonia. COVID/flu/ RSV are negative. Vital Signs Vital signs: Vital Signs Temperature 100.1 F H 02/06/24 18:02 Pulse Rate 92 02/06/24 18:02 Respiratory Rate 33 H 02/06/24 18:02 Blood Pressure 170/90 H 02/06/24 18:02 Pulse Oximetry 95 02/06/24 18:02 Oxygen Delivery Room Air 02/06/24 18:02 Temperature 100.1 F H 02/06/24 18:02 Pulse Rate 91 02/06/24 21:18 Respiratory Rate 21 H 02/06/24 21:18 Blood Pressure 170/90 H 02/06/24 18:02 Pulse Oximetry 93 02/06/24 18:10 Oxygen Delivery Room Air 02/06/24 18:10 MDM - SOB/Dyspnea Lab Data 02/06/24 18:22 02/06/24 18:22 Labs: Lab Results 02/06/24 02/06/24 02/06/24 Range/Units 18:22 20:01 20:19 WBC 9.6 (4.5-10.0) K/mm3 RBC 4.87 (4.6-6.20) M/mm3 Hgb 15.0 (14.0-18.0) g/dL Hct 45.7 (42.0-52.0) % MCV 93.8 (80-100) fl MCH 30.8 (26-34) pg MCHC 32.8 (32-36) g/dl RDW 15.6 H (11.5-14.5) % Plt Count 231 (150-375) k/mm3 MPV 9.9 (7.4-10.4) fl Immature Gran % (Auto) 0.3 (0-0.5) % Neut % (Auto) 81.0 H (45.5-73.1) % Lymph % (Auto) 7.6 L (18.3-44.2) % [place] % (Auto) 10.4 H (2.6-8.5) % Eos % (Auto) 0.2 (0-4.4) % Baso % (Auto) 0.5 (0.2-1.2) % Lymph # (Auto) 0.73 L (0.9-3.2) K/mm3 [place] # (Auto) 1.0 H (0.1-0.6) K/mm3 Eos # (Auto) 0.0 (0-0.3) K/mm3 Baso # (Auto) 0.1 (0.0-0.1) K/mm3 Abs Immat Gran (auto) 0.03 (0.00-0.031) K/mm3 Absolute Neuts (auto) 7.8 H (1.3-6.7) K/mm3 Absolute Nucleated RBC 0.000 (0.0-0.012) K/mm3 Nucleated RBC % 0.0 (0.0-0.2) % Sodium 139 (137-145) mmol/L Potassium 4.4 (3.4-5.0) mmol/L Chloride 103 (98-107) mmol/L Carbon Dioxide 27 (22-30) mmol/L Anion Gap 9 (4-12) mmol/L BUN 22 H (9-20) mg/dL Creatinine 0.80 (0.7-1.3) mg/dL Estim Creat Clear Calc 61 ml/min Estimated GFR > 60 (59 - ) Glucose 111 H (65-110) mg/dL Lactic Acid 1.2 (0.7-2.0) mmol/L Calcium 9.1 (8.4-10.2) mg/dL Total Bilirubin 1.8 H (0.2-1.3) mg/dL AST 41 (17-59) U/L ALT 21 (6-50) U/L Alkaline Phosphatase 112 (38-126) U/L NT-Pro-B Natriuret Pep 2490 H (19.9-100) pg/mL Total Protein 9.0 H (6.3-8.2) g/dL Albumin 4.6 (3.5-5.1) g/dL Influenza A (RT-PCR) Negative (Negative) Influenza B (RT-PCR) Negative (Negative) RSV (RT-PCR) Negative (Negative) SARS-CoV-2 RNA (RT-PCR) Negative (Negative) Imaging Data Radiologist's impression: ITS Impressions Chest X-Ray 02/06/24 18:59 IMPRESSION: Moderate interstitial edema. Small bilateral pleural effusions. ECG Data EKG #1: ECG completion date: 02/06/24 ECG completion time: 18:29 EKG Interpretation: normal rate (91), atrial fibrillation, non-specific ST changes, normal QRS, normal QT and left axis Discharge Plan Discharge Clinical Impression: Pneumonia, Hypoxia Patient Disposition: Still a Patient Condition: Stable Prescriptions: No Action losartan 100 mg tablet 100 mg PO DAILY omeprazole 20 mg capsule,delayed release(DR/EC) Bystolic 10 mg tablet Xarelto 20 mg tablet albuterol sulfate 90 mcg/actuation HFA aerosol inhaler 2 puff inhalation QID PRN (Reason: shortness of breath or wheezing) Qty: 6.7 0RF Trelegy Ellipta 100-62.5-25 mcg blister with device See Rx Instructions .ROUTE .COMPLEX Qty: 180 3RF Dose Instruction: INHALE ONE PUFF BY MOUTH EVERY 24 HOURS; RINSE MOUTH AND SPIT AFTER EACH USE. Rx Instructions: INHALE ONE PUFF BY MOUTH EVERY 24 HOURS; RINSE MOUTH AND SPIT AFTER EACH USE. Follow-up/Referrals: Lita,Calixto Ortega MD [Primary Care Provider] -
[2024-02-06 20:32] LABS: NT Pro B Type Natriuretic Pept 2490 pg/mL (19.9-100)
[2024-02-06 20:36] LABS: Lactic Acid Reflex 1.2 mmol/L (0.7-2.0)
[2024-02-06 20:50] LABS: Influenza A QL RT-PCR Negative (Negative); Influenza B QL RT-PCR Negative (Negative); RSV RNA, RT-PCR Negative (Negative); SARS-CoV-2 RNA PCR Negative (Negative)
[2024-02-06 21:13] VITALS: PULSE 87; RESP 17
[2024-02-06] MEDS: IPRATROPIUM 0.5 MG/ALBUTEROL SULFATE 2.5 MG AMPUL.NEB 3 ML INHALATION (21:13)
[2024-02-06 21:18] VITALS: PULSE 91; RESP 21
[2024-02-06] MEDS: AZITHROMYCIN 500 MG/NS 250 ML 500 MG/250 ML BAG 250 MG IVPB (22:23)
[2024-02-06 22:27] VITALS: BP 149/87; PULSE 103; RESP 28; O2SAT 93
[2024-02-06 22:29] LABS: Procalcitonin 0.1 ng/mL
[2024-02-06 22:45] VITALS: BP 139/74; PULSE 89; RESP 18; TEMP 36.2; O2SAT 93
[2024-02-06 23:10] VITALS: BMI 39.1
--- NOTE | 2024-02-06 23:40 | ADMGEN ---
This patient, Gloria Weinstein, was admitted to [facility] Surg Room 325-02. Patient/family oriented to hospital policies and general routines including ID bracelet, bed and alarms, visiting hours, pain management, procedures, bathroom and other care routines, personal items, smoking policy, room service/diet, and visiting hours. Information on how to activate the Rapid Response Team has been discussed. Patient/Family are encouraged to report perceived risks to care and to ask questions if they do not understand what they are told or what they should do.
--- NOTE | 2024-02-06 23:44 | PC.NURSE ---
Admission report provided to KEVIN Cortez
[2024-02-07] VITALS (14 sets, daily range): BP systolic 111–138; BP diastolic 55–80; PULSE 65–106; RESP 19–24; TEMP 36.1–37.3; O2SAT 95–96
[2024-02-07] MEDS: WATER FOR IRRIGATION, STERILE 1,000 ML BOTTLE 1000 ML (00:10)
[2024-02-07] MEDS: IPRATROPIUM 0.5 MG/ALBUTEROL SULFATE 2.5 MG AMPUL.NEB 3 ML INHALATION ×4 (01:51→21:11)
--- NOTE | 2024-02-07 08:26 | P.HP_ITS ---
H&P: HPI History of Present Illness Date/Time: 02/07/24 08:26 Chief Complaint: Shortness of breath Narrative: This is a very pleasant 78-year-old gentleman with a past medical history significant for COPD, ASTER on CPAP at with 2 L nasal cannula, atrial fibrillation on Xarelto, hypertension, bladder cancer, CHF, GERD, and arthritis who presents to the emergency room with complaints of shortness of breath that has been worsening over the last 2-3 months. His Gladys is at the bedside and assist with providing the following history. The patient and his have noticed that his shortness of breath has worsened over the last couple months. Normally he can ambulate from his house to the car without becoming short of breath but over the last few weeks he has had to stop custodial to catch his breath. Now he can barely walk 10-12 feet without feeling winded. He has also developed a congested cough over the last few days with production of sputum that is thick and yellow in color. He reports a fever yesterday of 101 and associated body aches. He also had an episode of headache with dizziness. He has also had a runny nose. He is compliant with his CPAP at night and is able to sleep lying down on his side with 1 pillow. In the emergency room his labs were fairly unremarkable but he did have neutrophil elevation at 81 % with a normal white blood cell count of 9.6. His BMP showed T bili elevation of 1.8 and BNP 2400. His lactic acid was normal at 1.2 and procalcitonin normal at 0.1. ?viral screen was negative. Chest x-ray showed moderate interstitial edema with small bilateral pleural effusions. Blood cultures were drawn and patient was started on azithromycin and Rocephin for presumed community-acquired pneumonia. He was admitted in this setting for further workup. Review of Systems Review of Systems: All systems reviewed & are unremarkable except as noted in HPI and below PMFSH Past Medical History Medical History (Updated 02/07/24 @ 16:47 by Ml Payton APRN) Arthritis Bladder cancer CHF (congestive heart failure) Clavicle fracture Closed left arm fracture COPD (chronic obstructive pulmonary disease) DDD (degenerative disc disease) GERD (gastroesophageal reflux disease) Hemorrhoids HTN (hypertension) Nasal fracture Nasal septal deviation Pulmonary embolism Sleep apnea Surgical History Surgical History H/O spinal fusion L3-L5 H/O transurethral resection of prostate History of cardiac catheterization History of left hip replacement History of left knee replacement History of right hip replacement Hx of cholecystectomy Hx of tonsillectomy Family History Family History Father Family history of malignant neoplasm Other Diabetes mellitus Social History Social History (Updated 02/07/24 @ 16:32 by Ml Payton APRN) Social History: Patient lives with his Gladys who is his designated emergency contact and power of state attorney. He is retired from the [employer]. He states he drinks about a case of beer week. He quit smoking tobacco approximately 12 years ago prior to that he was a 3-4 pack a day smoker. He denies illicit drug use. Smoking packs per day: 3 Smoking cigarettes per day: 60.0 Years smoked: 50 Smoking pack-years: 150.00 Smoking status: Former smoker Second hand tobacco smoke exposure: Yes Additional smoking assessment comments: Pt smoked 2-3 packs per day for 50 years. Alcohol intake: current Drinks per week: 24 Substance use type: does not use Do You Feel Safe in your Home?: Yes Lack of Transportation: No Lack of Food: Never True Current Housing: I Have Housing Concerned About Future Housing: No Difficulty Paying Gas/Electric Bills: No Difficulty Paying for Meds: No Currently Unemployed: No Education: High School Diploma/GED Difficulty w/ Childcare or Family Care: No Living arrangements: with family Occupation/Education: retired Gender identity (if verbalized by the patient): Male Spiritual care concerns: No Meds Home Medications and Allergies Home Medications Medication Instructions Recorded Confirmed Type nebivolol 10 mg tablet (Bystolic) 10 mg PO DAILY 03/28/19 02/06/24 History rivaroxaban 20 mg tablet (Xarelto) 20 mg PO DAILY 03/28/19 02/06/24 History albuterol sulfate 90 mcg/actuation 2 puff inhalation QID PRN 02/14/20 02/06/24 Rx aerosol inhaler shortness of breath or wheezing #6.7 grams losartan 100 mg tablet 50 mg PO DAILY 11/02/23 02/06/24 History fluticasone fur. 100 mcg-umeclid 1 ea inhalation DAILY 02/07/24 02/07/24 History 62.5 mcg-vilant 25 mcg inhalat.powder (Trelegy Ellipta) Allergies Allergy/AdvReac Type Severity Reaction Status Date / Time diazepam Allergy Unknown Unknown Verified 02/06/24 23:40 Vital Signs Vital Signs - 24 hr 02/06/24 18:02 02/06/24 18:10 02/06/24 21:13 Temperature 100.1 F H Pulse Rate 92 87 Respiratory Rate 33 H 17 Blood Pressure 170/90 H Pulse Oximetry 95 93 Oxygen Delivery Room Air Room Air 02/06/24 21:18 02/06/24 22:27 02/06/24 22:45 Temperature 97.2 F L Pulse Rate 91 103 H 89 Respiratory Rate 21 H 28 H 18 Blood Pressure 149/87 H 139/74 Pulse Oximetry 93 93 Oxygen Delivery 02/07/24 01:54 02/07/24 01:00 02/07/24 02:00 Temperature Pulse Rate 82 82 86 Respiratory Rate 21 H 19 Blood Pressure Pulse Oximetry 95 Oxygen Delivery CPAP 02/07/24 06:23 02/07/24 06:00 Temperature 97 F L Pulse Rate 82 Respiratory Rate 24 H Blood Pressure 111/80 Pulse Oximetry 95 96 Oxygen Delivery CPAP Exam Narrative: General: appears dyspneic with communication, well-nourished, appears stated age Respiratory: breathing is labored with even chest rise/fall, coarse lung sounds to bilateral lower lobe with faint expiratory wheezing. Cardiovascular: irregular Rate and rhythm, normal s1s2, no murmur Abdomen: Soft, round, distended, non-tender, active bowel sounds Extremities: No cyanosis, edema, clubbing. Pulses 2/2 Neuro: A&O x 4 Skin: Warm, dry, intact H&P: Results Labs Labs: Short CBC 02/06/24 Range/Units 18:22 WBC 9.6 (4.5-10.0) K/mm3 Hgb 15.0 (14.0-18.0) g/dL Hct 45.7 (42.0-52.0) % Plt Count 231 (150-375) k/mm3 BMP 02/06/24 18:22 Sodium 139 Potassium 4.4 Chloride 103 Carbon Dioxide 27 BUN 22 H Creatinine 0.80 Glucose 111 H Calcium 9.1 Liver Function 11/26/24 Range/Units 18:22 Total Bilirubin 1.8 H (0.2-1.3) mg/dL AST 41 (17-59) U/L ALT 21 (6-50) U/L Alkaline Phosphatase 112 (38-126) U/L Albumin 4.6 (3.5-5.1) g/dL Assessment and Plan Assessment and plan (1) Pneumonia: Code(s): J18.9 - Pneumonia, unspecified organism Status: Acute Assessment and Plan: Patient with worsening shortness of breath over the last couple of months but even worse in the last week with concurrent fever, chills, and productive yellow sputum. * WBC normal at 9.6, with neutrophils 81%, procalcitonin 0.1 * CT chest shows pneumonia to bilateral lower lobes * Blood cultures were drawn, sputum culture added. Urine legionella and pneumococcal antigen as well as Mycoplasma sent. * Started on Rocephin and azithromycin * Duo nebs every 6 hours, Mucinex 1200 mg BID * Not currently requiring oxygen at rest (2) COPD (chronic obstructive pulmonary disease): Qualifiers: COPD type: unspecified COPD Qualified Code(s): J44.9 - Chronic obstructive pulmonary disease, unspecified Code(s): J44.9 - Chronic obstructive pulmonary disease, unspecified Status: Acute Assessment and Plan: Patient follows with Arnold Melissa in Dr. Jain's office. Patient uses Trelegy and rescue albuterol inhaler. Here with increased shortness of breath, increased sputum production, and fever 101. * CAP therapy for pneumonia * Added steroids with chest tightness and expiratory wheeze (3) ASTER (obstructive sleep apnea): Code(s): G47.33 - Obstructive sleep apnea (adult) (pediatric) Status: Acute Assessment and Plan: History of ASTER and compliant with CPAP. Continue during hospitalization. (4) Atrial fibrillation: Code(s): I48.91 - Unspecified atrial fibrillation Status: Acute Assessment and Plan: History of atrial fibrillation status post cardioversion on Xarelto and Bystolic. * EKG shows a-fib with rate of 91 bpm * continue home medications (5) CHF (congestive heart failure): Code(s): I50.9 - Heart failure, unspecified Status: Acute Assessment and Plan: Patient follows with content management consultant at [facility]. Echo from June of this year shows mildly dilated LV with mildly depressed LV systolic function with an EF estimated at 53% and indeterminate diastolic function because of atrial fibrillation. Mild aortic and mitral valve regurgitation and trace tricuspid regurgitation. Moderate pulmonary hypertension with RV systolic pressure estimate 52 mmHg. * Patient has moderate interstitial edema and small bilateral pleural effusion seen on chest x-ray with cardiomegaly. Trace bilateral lower extremity dependent edema. * BNP elevated at 2500 * Continue with losartan 100 mg daily, nebivolol 10 mg daily * Will give 40 of IV Lasix once * Strict I&O, daily weight, heart healthy diet Quality VTE Prophylaxis VTE prophylaxis: pharmacologic ordered Hospitalist [facility] Advance Care Plan I have confirmed that the patient's Advanced Care Plan is present, code status is documented, or surrogate decision maker is listed in patient medical record.: Yes Medication Reconciliation I have utilized all available resources to obtain, update and review the patients current medications (includes all prescriptions, OTC, herbals, cannabis, and nutritional supplements).: Yes
[2024-02-07] MEDS: RIVAROXABAN 20 MG TABLET PO (10:58)
[2024-02-07] MEDS: LOSARTAN POTASSIUM 50 MG TABLET PO (10:58)
[2024-02-07] MEDS: NEBIVOLOL HCL 5 MG TABLET 10 MG PO (10:59)
[2024-02-07] MEDS: guaiFENesin 12 HR 600 MG TABCR 1200 MG PO (21:11)
[2024-02-07] MEDS: methylPREDNISolone SOD SUCC 125 MG VIAL 80 MG IV PUSH (21:12)
[2024-02-07] MEDS: AZITHROMYCIN 500 MG/NS 250 ML 500 MG/250 ML BAG 250 MG IVPB (21:55)
[2024-02-08] VITALS (11 sets, daily range): BP systolic 102–144; BP diastolic 60–74; PULSE 78–97; RESP 17–24; TEMP 36.5–36.6; O2SAT 96–97
[2024-02-08 00:14] LABS: Glucose Point of Care 139 mg/dl (65-105)
[2024-02-08] MEDS: IPRATROPIUM 0.5 MG/ALBUTEROL SULFATE 2.5 MG AMPUL.NEB 3 ML INHALATION ×4 (02:16→20:47)
[2024-02-08 05:33] LABS: Glucose Point of Care 173 mg/dl (65-105)
[2024-02-08] MEDS: methylPREDNISolone SOD SUCC 125 MG VIAL 80 MG IV PUSH (05:38)
[2024-02-08 06:50] LABS: Basophils Percent Auto 0.1 % (0.2-1.2); Eosinophils Percent Auto 0.1 % (0-4.4); Hematocrit 43.8 % (42.0-52.0); Hemoglobin 14.2 g/dL (14.0-18.0); Immature Granulocyte Absolute 0.13 K/mm3 (0.00-0.031); Immature Granulocyte Percent A 0.7 % (0-0.5); Lymphocytes Absolute Auto 0.36 K/mm3 (0.9-3.2); Lymphocytes Percent Auto 1.9 % (18.3-44.2); Mean Corpuscular HGB Conc 32.4 g/dl (32-36); Mean Corpuscular Hemoglobin 30.5 pg (26-34); Mean Platelet Volume 10.2 fl (7.4-10.4); Monocytes Absolute Auto 0.2 K/mm3 (0.1-0.6); Monocytes Percent Auto 1.1 % (2.6-8.5); Neutrophils Absolute Auto 18.3 K/mm3 (1.3-6.7); Neutrophils Percent Auto 96.1 % (45.5-73.1); Platelet Count Result 225 k/mm3 (150-375); Red Blood Count 4.66 M/mm3 (4.6-6.20); Red Cell Distribution Width 15.4 % (11.5-14.5)
[2024-02-08 07:08] LABS: Alanine Aminotransferase 36 U/L (6-50); Albumin Level 3.8 g/dL (3.5-5.1); Alkaline Phosphatase 86 U/L (38-126); Anion Gap 11 mmol/L (4-12); Aspartate Amino Transferase 104 U/L (17-59); Bilirubin,Total 1.2 mg/dL (0.2-1.3); Blood Urea Nitrogen 30 mg/dL (9-20); Calcium 8.6 mg/dL (8.4-10.2); Carbon Dioxide 24 mmol/L (22-30); Chloride 102 mmol/L (98-107); Estimated CRCL calculation 85 ml/min; Estimated Glomerular Filt Rate > 60; Glucose 180 mg/dL (65-110); Magnesium 2.3 mg/dL (1.6-2.3); Potassium 4.9 mmol/L (3.4-5.0); Sodium 137 mmol/L (137-145)
--- NOTE | 2024-02-08 09:34 | P.PNIM_ITS ---
Progress Note: A&P Assessment and Plan (1) Pneumonia: Code(s): J18.9 - Pneumonia, unspecified organism Status: Acute Assessment and Plan: Patient with worsening shortness of breath over the last couple of months but even worse in the last week with concurrent fever, chills, and productive yellow sputum. * WBC normal at 9.6, with neutrophils 81%, procalcitonin 0.1 * WBC increased to 19.0 today, neutrophils 96.1%. Likely reactive from addition of steroids for concurrent COPD exacerbation. IV steroids stopped and transition to oral prednisone. * CT chest shows pneumonia to bilateral lower lobes * Blood cultures were drawn, sputum culture added. * Urine legionella and pneumococcal antigen as well as Mycoplasma sent. * Started on Rocephin and azithromycin * Duo nebs every 6 hours, Mucinex 1200 mg BID * Not currently requiring oxygen at rest (2) COPD (chronic obstructive pulmonary disease): Qualifiers: COPD type: unspecified COPD Qualified Code(s): J44.9 - Chronic obstructive pulmonary disease, unspecified Code(s): J44.9 - Chronic obstructive pulmonary disease, unspecified Status: Acute Assessment and Plan: Patient follows with Arnold Melissa in Dr. Jain's office. Patient uses Trelegy and rescue albuterol inhaler. Here with increased shortness of breath, increased sputum production, and fever 101. * CAP therapy for pneumonia * Added IV steroids with chest tightness and expiratory wheeze. Wheezing today is much improved with improved air movement. * Transition to oral prednisone 40 mg daily (3) ASTER (obstructive sleep apnea): Code(s): G47.33 - Obstructive sleep apnea (adult) (pediatric) Status: Acute Assessment and Plan: History of ASTER and compliant with CPAP. Continue during hospitalization. (4) Atrial fibrillation: Code(s): I48.91 - Unspecified atrial fibrillation Status: Acute Assessment and Plan: History of atrial fibrillation status post cardioversion on Xarelto and Bystolic. * EKG shows a-fib with rate of 91 bpm * continue home medications (5) CHF (congestive heart failure): Code(s): I50.9 - Heart failure, unspecified Status: Acute Assessment and Plan: Patient follows with administrative assistant receptionist at [facility]. Echo from June of this year shows mildly dilated LV with mildly depressed LV systolic function with an EF estimated at 53% and indeterminate diastolic function because of atrial fibrillation. Mild aortic and mitral valve regurgitation and trace tricuspid regurgitation. Moderate pulmonary hypertension with RV systolic pressure estimate 52 mmHg. * Patient has moderate interstitial edema and small bilateral pleural effusion seen on chest x-ray with cardiomegaly. Trace bilateral lower extremity dependent edema * BNP elevated at 2500 * Continue with losartan 100 mg daily, nebivolol 10 mg daily * Received IV Lasix 40 mg 02/06, Added Lasix 40 mg daily started for 2-3+ BLE * Out put of 500 ml and urine occurrence documented for the last 24 hours. + 1750 ml * 120.2 kg on admission, 120 kg today. Weight from 10/2023 124.7 kg. * Strict I&O, daily weight, heart healthy diet Subjective Date/time seen: 02/08/24 09:34 Interval history: No acute events overnight. He can tell his breathing is better but not quite back to baseline. He has less wheezing. Review of Systems Review of Systems: All systems reviewed & are unremarkable except as noted in HPI and below Exam Narrative: General: appears dyspneic with communication, well-nourished, appears stated age Respiratory: breathing is unlabored with even chest rise/fall at rest, diminished to bilateral bases but improved air movement overall. Cardiovascular: irregular Rate and rhythm, normal s1s2, no murmur Abdomen: Soft, round, distended, non-tender, active bowel sounds Extremities: No cyanosis, +1-2 BLE edema, no clubbing. Pulses 2/2 Neuro: A&O x 4 Skin: Warm, dry, intact Objective Data Vital Signs Vital Signs: Vital Signs - 24 hr 02/07/24 10:59 02/07/24 14:33 02/07/24 14:00 Temperature 97.5 F L Pulse Rate 103 H 88 65 Respiratory Rate 20 22 H Blood Pressure 138/68 Pulse Oximetry 96 Oxygen Delivery 02/07/24 21:11 02/07/24 21:11 02/07/24 19:30 Temperature 99.1 F Pulse Rate 80 87 Respiratory Rate 20 20 Blood Pressure 116/55 L Pulse Oximetry 96 96 Oxygen Delivery Room Air 02/08/24 02:16 02/07/24 21:17 02/08/24 02:24 Temperature Pulse Rate 86 86 90 Respiratory Rate 24 H 20 24 H Blood Pressure Pulse Oximetry Oxygen Delivery 02/08/24 05:25 Temperature 97.8 F Pulse Rate 92 Respiratory Rate 20 Blood Pressure 102/66 Pulse Oximetry 97 Oxygen Delivery Intake/Output Intake/Output: Intake & Output 02/05/24 02/06/24 02/07/24 02/08/24 23:59 23:59 23:59 23:59 Intake Total 50 900 580 Output Total 500 Balance 50 900 80 Meds/Results Medications: Active Medications Generic Name Dose Route Start Last Admin Trade Name Freq PRN Reason Stop Dose Admin Acetaminophen 650 mg 02/06/24 21:52 Acetaminophen 325 Mg Tablet PO Q4H PRN Mild Pain (1-3) or Fever Hydrocodone Bitart/Acetaminophen 1 tab 02/06/24 21:52 Hydrocodone/Acetaminophen (*Crx) 5-325 Mg Tablet PO Q4H PRN Pain Rated 4-6 Albuterol/Ipratropium 3 ml 02/07/24 02:00 02/08/24 02:16 Ipratropium 0.5 Mg/Albuterol Sulfate 2.5 Mg Ampul.Neb 3 Ml INHALATION 3 ml Q6HRT APOORVA Administration Dextrose 12.5 gm 02/08/24 09:32 Dextrose 50% 25 Gm/50 Ml Syringe IV PUSH PRN PRN Hypoglycemia Protocol Fluticasone/Umeclidinium/Vilanterol 1 puff 02/07/24 11:00 02/07/24 14:32 Fluticasone/Umeclidin/Vilanter 100-62.5-25 Mcg Ellipta INHALATION Not Given DAILYRT APOORVA Glucagon 1 mg 02/08/24 09:32 Glucagon For Inj 1 Mg Vial IM PRN PRN Hypoglycemia Protocol Glucose 15 gm 02/08/24 09:32 Glucose Oral Gel 15 Gm Of Glucse In 37.5 Gm Tube PO PRN PRN Hypoglycemia Protocol Guaifenesin 1,200 mg 02/07/24 21:00 02/07/24 21:11 Guaifenesin 12 Hr 600 Mg Tabcr PO 1,200 mg Q12HR APOORVA Administration Ceftriaxone Sodium 1 gm in 50 mls @ 100 mls/hr 02/07/24 21:00 02/07/24 21:12 Rocephin 1 Gm/Ns 50 Ml IVPB 100 mls/hr Q24H APOORVA Administration Azithromycin 500 mg in 250 mls @ 250 mls/hr 02/07/24 22:00 02/07/24 21:55 Zithromax IVPB 250 mls/hr Q24H APOORVA Administration Dextrose 1,000 mls @ 100 mls/hr 02/08/24 09:32 Dextrose 5% 1,000 Ml IVPB PRN PRN Hypoglycemia Protocol Insulin Aspart 4 - 8 units 02/08/24 12:00 Insulin Aspart (*Bkc) 100 Units/Ml SUB-Q TIDWM APOORVA Protocol Lorazepam 2 mg 02/07/24 16:29 Lorazepam Inj (*Crx) 2 Mg/Ml Vial IV PUSH Q4H PRN CIWA 8-15 Losartan Potassium 50 mg 02/07/24 11:00 02/07/24 10:58 Losartan Potassium 50 Mg Tablet PO 50 mg DAILY APOORVA Administration Nebivolol 10 mg 02/07/24 11:00 02/07/24 10:59 Nebivolol Hcl 5 Mg Tablet PO 10 mg DAILY APOORVA Administration Prednisone 40 mg 02/10/24 08:00 Prednisone 20 Mg Tablet PO DAILY@0800 [facility] Promethazine HCl 12.5 mg 02/06/24 21:52 Promethazine Hcl 25 Mg/Ml Ampul IV PUSH Q6H PRN Nausea Rivaroxaban 20 mg 02/07/24 11:00 02/07/24 10:58 Rivaroxaban 20 Mg Tablet PO 20 mg DAILY APOORVA Administration Radiology Results: ITS Impressions Chest X-Ray 02/06/24 18:59 IMPRESSION: Moderate interstitial edema. Small bilateral pleural effusions. Chest CT 02/07/24 14:26 IMPRESSION: 1. Bilateral pneumonia with a lower lung predominance. 2. Moderate emphysema. 3. Mild mediastinal lymphadenopathy, likely reactive. Labs Labs: Laboratory Results - last 24 hr 02/08/24 02/08/24 02/08/24 00:11 05:28 06:27 WBC 19.0 H RBC 4.66 Hgb 14.2 Hct 43.8 MCV 94.0 MCH 30.5 MCHC 32.4 RDW 15.4 H Plt Count 225 MPV 10.2 Immature Gran % (Auto) 0.7 H Neut % (Auto) 96.1 H Lymph % (Auto) 1.9 L [place] % (Auto) 1.1 L Eos % (Auto) 0.1 Baso % (Auto) 0.1 L Lymph # (Auto) 0.36 L Hodgeman # (Auto) 0.2 Eos # (Auto) 0.0 Baso # (Auto) 0.0 Abs Immat Gran (auto) 0.13 H Absolute Neuts (auto) 18.3 H Absolute Nucleated RBC 0.000 Nucleated RBC % 0.0 Sodium 137 Potassium 4.9 Chloride 102 Carbon Dioxide 24 Anion Gap 11 BUN 30 H Creatinine 0.80 Estim Creat Clear Calc 85 Estimated GFR > 60 Glucose 180 H POC Capillary Glucose 139 H 173 H Calcium 8.6 Magnesium 2.3 Total Bilirubin 1.2 AST 104 H ALT 36 Alkaline Phosphatase 86 Total Protein 7.0 Albumin 3.8 Quality VTE Prophylaxis VTE prophylaxis: pharmacologic ordered
[2024-02-08] MEDS: RIVAROXABAN 20 MG TABLET PO (09:35)
[2024-02-08] MEDS: guaiFENesin 12 HR 600 MG TABCR 1200 MG PO ×2 (09:35→20:47)
[2024-02-08] MEDS: FLUTICASONE/UMECLIDIN/VILANTER 100-62.5-25 MCG ELLIPTA 1 PUFF INHALATION (09:40)
[2024-02-08 09:51] LABS: Hemoglobin A1C 5.9 % (<5.7)
[2024-02-08 11:36] LABS: Glucose Point of Care 343 mg/dl (65-105)
[2024-02-08] MEDS: INSULIN ASPART (*BKC) 100 UNITS/ML SUB-Q ×2 (13:15→20:50)
[2024-02-08] MEDS: LOSARTAN POTASSIUM 50 MG TABLET PO (14:15)
[2024-02-08] MEDS: NEBIVOLOL HCL 5 MG TABLET 10 MG PO (14:15)
[2024-02-08 16:29] LABS: Glucose Point of Care 120 mg/dl (65-105)
[2024-02-08 20:16] LABS: Glucose Point of Care 243 mg/dl (65-105)
[2024-02-08] MEDS: AZITHROMYCIN 500 MG/NS 250 ML 500 MG/250 ML BAG 250 MG IVPB (21:29)
[2024-02-09] VITALS (7 sets, daily range): BP systolic 122; BP diastolic 95; PULSE 62–92; RESP 17–22; TEMP 36.1; O2SAT 97–98
[2024-02-09] MEDS: IPRATROPIUM 0.5 MG/ALBUTEROL SULFATE 2.5 MG AMPUL.NEB 3 ML INHALATION ×2 (01:56→07:10)
[2024-02-09 06:27] LABS: Basophils Percent Auto 0.1 % (0.2-1.2); Hematocrit 43.1 % (42.0-52.0); Hemoglobin 13.7 g/dL (14.0-18.0); Immature Granulocyte Absolute 0.16 K/mm3 (0.00-0.031); Immature Granulocyte Percent A 0.8 % (0-0.5); Lymphocytes Absolute Auto 0.64 K/mm3 (0.9-3.2); Lymphocytes Percent Auto 3.3 % (18.3-44.2); Mean Corpuscular HGB Conc 31.8 g/dl (32-36); Mean Corpuscular Hemoglobin 30.1 pg (26-34); Mean Corpuscular Volume 94.7 fl (80-100); Mean Platelet Volume 9.7 fl (7.4-10.4); Monocytes Absolute Auto 0.6 K/mm3 (0.1-0.6); Monocytes Percent Auto 3.3 % (2.6-8.5); Neutrophils Absolute Auto 17.7 K/mm3 (1.3-6.7); Neutrophils Percent Auto 92.5 % (45.5-73.1); Platelet Count Result 255 k/mm3 (150-375); Red Blood Count 4.55 M/mm3 (4.6-6.20); Red Cell Distribution Width 15.3 % (11.5-14.5); White Blood Count 19.2 K/mm3 (4.5-10.0)
[2024-02-09 06:45] LABS: Alanine Aminotransferase 48 U/L (6-50); Albumin Level 3.6 g/dL (3.5-5.1); Alkaline Phosphatase 78 U/L (38-126); Anion Gap 8 mmol/L (4-12); Aspartate Amino Transferase 82 U/L (17-59); Bilirubin,Total 0.9 mg/dL (0.2-1.3); Blood Urea Nitrogen 32 mg/dL (9-20); Calcium 8.5 mg/dL (8.4-10.2); Carbon Dioxide 30 mmol/L (22-30); Chloride 102 mmol/L (98-107); Estimated CRCL calculation 69 ml/min; Estimated Glomerular Filt Rate > 60; Glucose 162 mg/dL (65-110); Magnesium 2.4 mg/dL (1.6-2.3); Potassium 4.8 mmol/L (3.4-5.0); Sodium 140 mmol/L (137-145)
[2024-02-09] MEDS: FLUTICASONE/UMECLIDIN/VILANTER 100-62.5-25 MCG ELLIPTA 1 PUFF INHALATION (07:10)
[2024-02-09 07:42] LABS: Glucose Point of Care 157 mg/dl (65-105)
--- NOTE | 2024-02-09 08:06 | PM.IMPN ---
Progress Note: A&P Assessment and Plan (1) Pneumonia: Code(s): J18.9 - Pneumonia, unspecified organism Status: Acute Assessment and Plan: Patient with worsening shortness of breath over the last couple of months but even worse in the last week with concurrent fever, chills, and productive yellow sputum. WBC normal at 9.6, with neutrophils 81%, procalcitonin 0.1 WBC increased to 19.0 today, neutrophils 96.1%. Likely reactive from addition of steroids for concurrent COPD exacerbation. IV steroids stopped and transition to oral prednisone. CT chest shows pneumonia to bilateral lower lobes Blood cultures were drawn, sputum culture added. Urine legionella and pneumococcal antigen as well as Mycoplasma sent. Started on Rocephin and azithromycin Duo nebs every 6 hours, Mucinex 1200 mg BID Not currently requiring oxygen at rest (2) COPD (chronic obstructive pulmonary disease): Qualifiers: COPD type: unspecified COPD Qualified Code(s): J44.9 - Chronic obstructive pulmonary disease, unspecified Code(s): J44.9 - Chronic obstructive pulmonary disease, unspecified Status: Acute Assessment and Plan: Patient follows with Arnold Melissa in Dr. Jain's office. Patient uses Trelegy and rescue albuterol inhaler. Here with increased shortness of breath, increased sputum production, and fever 101. CAP therapy for pneumonia Added IV steroids with chest tightness and expiratory wheeze. Wheezing today is much improved with improved air movement. Transition to oral prednisone 40 mg daily (3) ASTER (obstructive sleep apnea): Code(s): G47.33 - Obstructive sleep apnea (adult) (pediatric) Status: Acute Assessment and Plan: History of ASTER and compliant with CPAP. Continue during hospitalization. (4) Atrial fibrillation: Code(s): I48.91 - Unspecified atrial fibrillation Status: Acute Assessment and Plan: History of atrial fibrillation status post cardioversion on Xarelto and Bystolic. EKG shows a-fib with rate of 91 bpm continue home medications (5) CHF (congestive heart failure): Code(s): I50.9 - Heart failure, unspecified Status: Acute Assessment and Plan: Patient follows with uranium processing supervisor at [facility]. Echo from June of this year shows mildly dilated LV with mildly depressed LV systolic function with an EF estimated at 53% and indeterminate diastolic function because of atrial fibrillation. Mild aortic and mitral valve regurgitation and trace tricuspid regurgitation. Moderate pulmonary hypertension with RV systolic pressure estimate 52 mmHg. Patient has moderate interstitial edema and small bilateral pleural effusion seen on chest x-ray with cardiomegaly. Trace bilateral lower extremity dependent edema BNP elevated at 2500 Continue with losartan 100 mg daily, nebivolol 10 mg daily Received IV Lasix 40 mg 02/06, Added Lasix 40 mg daily started for 2-3+ BLE Out put of 500 ml and urine occurrence documented for the last 24 hours. + 1750 ml 120.2 kg on admission, 120 kg today. Weight from 10/2023 124.7 kg. Strict I&O, daily weight, heart healthy diet Subjective Date/time seen: 02/09/24 08:06 Interval history: 78-year-old gentleman with a past medical history significant for COPD, ASTER on CPAP at with 2 L nasal cannula, atrial fibrillation on Xarelto, hypertension, bladder cancer, CHF, GERD, and arthritis who presents to the emergency room with complaints of shortness of breath that has been worsening over the last 2-3 months. No acute events overnight. He can tell his breathing is better but not quite back to baseline. He has less wheezing. Review of Systems Review of Systems: All systems reviewed & are unremarkable except as noted in HPI and below Exam Narrative: General: appears dyspneic with communication, well-nourished, appears stated age Respiratory: breathing is unlabored with even chest rise/fall at rest, diminished to bilateral bases but improved air movement overall. Cardiovascular: irregular Rate and rhythm, normal s1s2, no murmur Abdomen: Soft, round, distended, non-tender, active bowel sounds Extremities: No cyanosis, +1-2 BLE edema, no clubbing. Pulses 2/2 Neuro: A&O x 4 Skin: Warm, dry, intact Objective Data Vital Signs Vital Signs: Vital Signs - 24 hr 02/08/24 09:41 02/08/24 09:41 02/08/24 14:00 Temperature 97.9 F Pulse Rate 80 97 Respiratory Rate 21 H 20 Blood Pressure 144/74 H Pulse Oximetry 97 97 Oxygen Delivery Room Air 02/08/24 15:13 02/08/24 14:15 02/08/24 20:19 Temperature 97.7 F Pulse Rate 78 78 85 Respiratory Rate 21 H 17 Blood Pressure 126/60 Pulse Oximetry 96 Oxygen Delivery 02/08/24 20:47 02/08/24 20:47 02/08/24 20:53 Temperature Pulse Rate 83 84 Respiratory Rate 22 H 22 H Blood Pressure Pulse Oximetry 97 Oxygen Delivery Room Air 02/08/24 20:00 02/08/24 20:00 02/09/24 01:58 Temperature Pulse Rate 84 88 Respiratory Rate 22 H 22 H Blood Pressure 126/60 Pulse Oximetry 97 Oxygen Delivery Room Air 02/09/24 01:58 02/09/24 02:02 02/09/24 05:31 Temperature 97.0 F L Pulse Rate 88 92 79 Respiratory Rate 22 H 17 Blood Pressure 122/95 H Pulse Oximetry 97 98 Oxygen Delivery CPAP 02/09/24 07:10 02/09/24 07:13 Temperature Pulse Rate 90 Respiratory Rate 20 Blood Pressure Pulse Oximetry 97 Oxygen Delivery Room Air Intake/Output Intake/Output: Intake & Output 02/06/24 02/07/24 02/08/24 02/09/24 23:59 23:59 23:59 23:59 Intake Total 50 1200 2630 Output Total 500 0 Balance 50 1200 2130 0 Meds/Results Medications: Active Medications Generic Name Dose Route Start Last Admin Trade Name Freq PRN Reason Stop Dose Admin Acetaminophen 650 mg 02/06/24 21:52 Acetaminophen 325 Mg Tablet PO Q4H PRN Mild Pain (1-3) or Fever Hydrocodone Bitart/Acetaminophen 1 tab 02/06/24 21:52 Hydrocodone/Acetaminophen (*Crx) 5-325 Mg Tablet PO Q4H PRN Pain Rated 4-6 Albuterol/Ipratropium 3 ml 02/07/24 02:00 02/09/24 07:10 Ipratropium 0.5 Mg/Albuterol Sulfate 2.5 Mg Ampul.Neb 3 Ml INHALATION 3 ml Q6HRT APOORVA Administration Dextrose 12.5 gm 02/08/24 09:32 Dextrose 50% 25 Gm/50 Ml Syringe IV PUSH PRN PRN Hypoglycemia Protocol Fluticasone/Umeclidinium/Vilanterol 1 puff 02/07/24 11:00 02/09/24 07:10 Fluticasone/Umeclidin/Vilanter 100-62.5-25 Mcg Ellipta INHALATION 1 puff DAILYRT APOORVA Administration Furosemide 40 mg 02/09/24 09:00 Furosemide 40 Mg Tablet PO DAILY APOORVA Glucagon 1 mg 02/08/24 09:32 Glucagon For Inj 1 Mg Vial IM PRN PRN Hypoglycemia Protocol Glucose 15 gm 02/08/24 09:32 Glucose Oral Gel 15 Gm Of Glucse In 37.5 Gm Tube PO PRN PRN Hypoglycemia Protocol Guaifenesin 1,200 mg 02/07/24 21:00 02/08/24 20:47 Guaifenesin 12 Hr 600 Mg Tabcr PO 1,200 mg Q12HR APOORVA Administration Ceftriaxone Sodium 1 gm in 50 mls @ 100 mls/hr 02/07/24 21:00 02/08/24 21:30 Rocephin 1 Gm/Ns 50 Ml IVPB Infused Q24H APOORVA Infusion Azithromycin 500 mg in 250 mls @ 250 mls/hr 02/07/24 22:00 02/08/24 21:29 Zithromax IVPB 250 mls/hr Q24H APOORVA Administration Dextrose 1,000 mls @ 100 mls/hr 02/08/24 09:32 Dextrose 5% 1,000 Ml IVPB PRN PRN Hypoglycemia Protocol Insulin Aspart 4 - 8 units 02/08/24 12:00 02/09/24 07:51 Insulin Aspart (*Bkc) 100 Units/Ml SUB-Q Not Given TIDWM [facility] Protocol Lorazepam 2 mg 02/07/24 16:29 Lorazepam Inj (*Crx) 2 Mg/Ml Vial IV PUSH Q4H PRN CIWA 8-15 Losartan Potassium 50 mg 02/07/24 11:00 02/08/24 14:15 Losartan Potassium 50 Mg Tablet PO 50 mg DAILY APOORVA Administration Nebivolol 10 mg 02/07/24 11:00 02/08/24 14:15 Nebivolol Hcl 5 Mg Tablet PO 10 mg DAILY APOORVA Administration Prednisone 40 mg 02/10/24 08:00 Prednisone 20 Mg Tablet PO DAILY@0800 APOORVA Promethazine HCl 12.5 mg 02/06/24 21:52 Promethazine Hcl 25 Mg/Ml Ampul IV PUSH Q6H PRN Nausea Rivaroxaban 20 mg 02/07/24 11:00 02/08/24 09:35 Rivaroxaban 20 Mg Tablet PO 20 mg DAILY APOORVA Administration Radiology Results: ITS Impressions Chest X-Ray 02/06/24 18:59 IMPRESSION: Moderate interstitial edema. Small bilateral pleural effusions. Chest CT 11/27/24 14:26 IMPRESSION: 1. Bilateral pneumonia with a lower lung predominance. 2. Moderate emphysema. 3. Mild mediastinal lymphadenopathy, likely reactive. Labs Labs: Laboratory Results - last 24 hr 02/08/24 02/08/24 02/08/24 06:21 11:18 16:13 WBC RBC Hgb Hct MCV MCH MCHC RDW Plt Count MPV Immature Gran % (Auto) Neut % (Auto) Lymph % (Auto) [place]kins % (Auto) Eos % (Auto) Baso % (Auto) Lymph # (Auto) [place]kins # (Auto) Eos # (Auto) Baso # (Auto) Abs Immat Gran (auto) Absolute Neuts (auto) Absolute Nucleated RBC Nucleated RBC % Sodium Potassium Chloride Carbon Dioxide Anion Gap BUN Creatinine Estim Creat Clear Calc Estimated GFR Glucose POC Capillary Glucose 343 H 120 H Hemoglobin A1c 5.9 H Calcium Magnesium Total Bilirubin AST ALT Alkaline Phosphatase Total Protein Albumin 02/08/24 02/09/24 02/09/24 19:47 06:09 07:28 WBC 19.2 H RBC 4.55 L Hgb 13.7 L Hct 43.1 MCV 94.7 MCH 30.1 MCHC 31.8 L RDW 15.3 H Plt Count 255 MPV 9.7 Immature Gran % (Auto) 0.8 H Neut % (Auto) 92.5 H Lymph % (Auto) 3.3 L [place] % (Auto) 3.3 Eos % (Auto) 0.0 Baso % (Auto) 0.1 L Lymph # (Auto) 0.64 L [place] # (Auto) 0.6 Eos # (Auto) 0.0 Baso # (Auto) 0.0 Abs Immat Gran (auto) 0.16 H Absolute Neuts (auto) 17.7 H Absolute Nucleated RBC 0.000 Nucleated RBC % 0.0 Sodium 140 Potassium 4.8 Chloride 102 Carbon Dioxide 30 Anion Gap 8 BUN 32 H Creatinine 1.00 Estim Creat Clear Calc 69 Estimated GFR > 60 Glucose 162 H POC Capillary Glucose 243 H 157 H Hemoglobin A1c Calcium 8.5 Magnesium 2.4 H Total Bilirubin 0.9 AST 82 H ALT 48 Alkaline Phosphatase 78 Total Protein 7.0 Albumin 3.6 Quality VTE Prophylaxis VTE prophylaxis: pharmacologic ordered
[2024-02-09] MEDS: RIVAROXABAN 20 MG TABLET PO (08:47)
[2024-02-09] MEDS: guaiFENesin 12 HR 600 MG TABCR 1200 MG PO (08:47)
[2024-02-09] MEDS: NEBIVOLOL HCL 5 MG TABLET 10 MG PO (08:48)
[2024-02-09] MEDS: LOSARTAN POTASSIUM 50 MG TABLET PO (08:50)
[2024-02-09] MEDS: FUROSEMIDE 40 MG TABLET PO (08:50)
[2024-02-09] MEDS: INSULIN ASPART (*BKC) 100 UNITS/ML SUB-Q (11:29)
[2024-02-09 11:44] LABS: Glucose Point of Care 314 mg/dl (65-105)
--- NOTE | 2024-02-09 12:01 | P.DS_ITS ---
DS: Admitting Diagnosis Discharge Date 02/09/2024 Admitting Diagnosis pneumonia DS: Discharge Diagnosis Discharge Diagnosis (1) Pneumonia: Code(s): J18.9 - Pneumonia, unspecified organism Status: Acute Assessment and Plan: Patient with worsening shortness of breath over the last couple of months but even worse in the last week with concurrent fever, chills, and productive yellow sputum. * WBC normal at 9.6, with neutrophils 81%, procalcitonin 0.1 * WBC increased to 19.0 today, neutrophils 96.1%. Likely reactive from addition of steroids for concurrent COPD exacerbation. IV steroids stopped and transition to oral prednisone. * CT chest shows pneumonia to bilateral lower lobes * Blood cultures were drawn, sputum culture added. * Urine legionella and pneumococcal antigen as well as Mycoplasma sent. * Started on Rocephin and azithromycin * Duo nebs every 6 hours, Mucinex 1200 mg BID * Not currently requiring oxygen at rest (2) COPD (chronic obstructive pulmonary disease): Qualifiers: COPD type: unspecified COPD Qualified Code(s): J44.9 - Chronic obstructive pulmonary disease, unspecified Code(s): J44.9 - Chronic obstructive pulmonary disease, unspecified Status: Acute Assessment and Plan: Patient follows with Arnold Melissa in Dr. Jain's office. Patient uses Trelegy and rescue albuterol inhaler. Here with increased shortness of breath, increased sputum production, and fever 101. * CAP therapy for pneumonia * Added IV steroids with chest tightness and expiratory wheeze. Wheezing today is much improved with improved air movement. * Transition to oral prednisone 40 mg daily (3) ASTER (obstructive sleep apnea): Code(s): G47.33 - Obstructive sleep apnea (adult) (pediatric) Status: Acute Assessment and Plan: History of ASTER and compliant with CPAP. Continue during hospitalization. (4) Atrial fibrillation: Code(s): I48.91 - Unspecified atrial fibrillation Status: Acute Assessment and Plan: History of atrial fibrillation status post cardioversion on Xarelto and Bystolic. * EKG shows a-fib with rate of 91 bpm * continue home medications (5) CHF (congestive heart failure): Code(s): I50.9 - Heart failure, unspecified Status: Acute Assessment and Plan: Patient follows with sociology faculty member at [facility]. Echo from June of this year shows mildly dilated LV with mildly depressed LV systolic function with an EF estimated at 53% and indeterminate diastolic function because of atrial fibrillation. Mild aortic and mitral valve regurgitation and trace tricuspid regurgitation. Moderate pulmonary hypertension with RV systolic pressure e stimate 52 mmHg. * Patient has moderate interstitial edema and small bilateral pleural effusion seen on chest x-ray with cardiomegaly. Trace bilateral lower extremity dependent edema * BNP elevated at 2500 * Continue with losartan 100 mg daily, nebivolol 10 mg daily * Received IV Lasix 40 mg 02/06, Added Lasix 40 mg daily started for 2-3+ BLE * Out put of 500 ml and urine occurrence documented for the last 24 hours. + 1750 ml * 120.2 kg on admission, 120 kg today. Weight from 10/2023 124.7 kg. * Strict I&O, daily weight, heart healthy diet DS: Summary Hospital Course Reason for hospitalization: pneumonia Hospital Course: his is a very pleasant 78-year-old gentleman with a past medical history significant for COPD, ASTER on CPAP at with 2 L nasal cannula, atrial fibrillation on Xarelto, hypertension, bladder cancer, CHF, GERD, and arthritis who presents to the emergency room with complaints of shortness of breath that has been worsening over the last 2-3 months. His Gladys is at the bedside and assist with providing the following history. The patient and his have noticed that his shortness of breath has worsened over the last couple months. Normally he can ambulate from his house to the car without becoming short of breath but over the last few weeks he has had to stop longterm to catch his breath. Now he can barely walk 10-12 feet without feeling winded. He has also developed a congested cough over the last few days with production of sputum that is thick and yellow in color. He reports a fever yesterday of 101 and associated body aches. He also had an episode of headache with dizziness. He has also had a runny nose. He is compliant with his CPAP at night and is able to sleep lying down on his side with 1 pillow. In the emergency room his labs were fairly unremarkable but he did have neutrophil elevation at 81 % with a normal white blood cell count of 9.6. His BMP showed T bili elevation of 1.8 and BNP 2400. His lactic acid was normal at 1.2 and procalcitonin normal at 0.1. ?viral screen was negative. Chest x-ray showed moderate interstitial edema with small bilateral pleural effusions. Blood cultures were drawn and patient was started on azithromycin and Rocephin for presumed community-acquired pneumonia. On 02/08/2024 added IV steroids with chest tightness and expiratory wheeze. Wheezing today is much improved with improved air movement. today patient had much improvement in breathing, blood cultures were no growth today, patient was transition to oral antibiotics and was discharged home. Status at Discharge Functional status at discharge: independent ambulation Time Spent with Patient Time attestation: Total time spent providing and/or coordinating discharge services: Time spent: Greater than 30 minutes Exam Narrative: General: appears dyspneic with communication, well-nourished, appears stated age Respiratory: breathing is unlabored with even chest rise/fall at rest, diminished to bilateral bases but improved air movement overall. Cardiovascular: irregular Rate and rhythm, normal s1s2, no murmur Abdomen: Soft, round, distended, non-tender, active bowel sounds Extremities: No cyanosis, +1-2 BLE edema, no clubbing. Pulses 2/2 Neuro: A&O x 4 Skin: Warm, dry, intact DS: Data Data Completed and Pending Labs on day of discharge: Labs from last 24 hours 02/09/24 02/09/24 02/09/24 11:20 07:28 06:09 WBC 19.2 H RBC 4.55 L Hgb 13.7 L Hct 43.1 MCV 94.7 MCH 30.1 MCHC 31.8 L RDW 15.3 H Plt Count 255 MPV 9.7 Immature Gran % (Auto) 0.8 H Neut % (Auto) 92.5 H Lymph % (Auto) 3.3 L [place] % (Auto) 3.3 Eos % (Auto) 0.0 Baso % (Auto) 0.1 L Lymph # (Auto) 0.64 L [place] # (Auto) 0.6 Eos # (Auto) 0.0 Baso # (Auto) 0.0 Abs Immat Gran (auto) 0.16 H Absolute Neuts (auto) 17.7 H Absolute Nucleated RBC 0.000 Nucleated RBC % 0.0 Sodium 140 Potassium 4.8 Chloride 102 Carbon Dioxide 30 Anion Gap 8 BUN 32 H Creatinine 1.00 Estim Creat Clear Calc 69 Estimated GFR > 60 Glucose 162 H POC Capillary Glucose 314 H 157 H Calcium 8.5 Magnesium 2.4 H Total Bilirubin 0.9 AST 82 H ALT 48 Alkaline Phosphatase 78 Total Protein 7.0 Albumin 3.6 02/08/24 02/08/24 19:47 16:13 WBC RBC Hgb Hct MCV MCH MCHC RDW Plt Count MPV Immature Gran % (Auto) Neut % (Auto) Lymph % (Auto) [place] % (Auto) Eos % (Auto) Baso % (Auto) Lymph # (Auto) [place] # (Auto) Eos # (Auto) Baso # (Auto) Abs Immat Gran (auto) Absolute Neuts (auto) Absolute Nucleated RBC Nucleated RBC % Sodium Potassium Chloride Carbon Dioxide Anion Gap BUN Creatinine Estim Creat Clear Calc Estimated GFR Glucose POC Capillary Glucose 243 H 120 H Calcium Magnesium Total Bilirubin AST ALT Alkaline Phosphatase Total Protein Albumin Preliminary micro results at discharge 02/06/24 23:46 Blood Culture - Preliminary Blood 02/06/24 20:01 Blood Culture - Preliminary Blood Discharge Plan Discharge Consulting providers: Arlene Barry; Jef Camacho; Luis Manuel Kaminski; Srini Corona V. Discharging Clinician: Arlene Barry Anticipated Discharge Date/Time: 02/09/24 12:02 Patient Disposition: Home, Self-Care Activity: may shower Diet: regular Discharge Instructions: Discharge instructions: Take medications as prescribed New medications prescribed: you have been started on Lasix please follow-up with your sociology faculty member you have been given 4 days of 2 different antibiotics please take all as prescribed you have been prescribed steroids continue your home medications as normal You are activity as tolerated Monitor blood pressures Avoid social areas, you wear a mask when in social settings Encouraged to continue with yearly vaccinations Return to the emergency department if he developed sudden shortness of breath, chest pain, nausea, vomiting, upset stomach or intractable diarrhea Return to the emergency department if you develop fever greater than 101.5 Follow-up with: Your primary care physician within 1-2 weeks for post hospitalization check up follow-up with the sociology faculty member in 1-2 weeks Thank you for [facility] for your healthcare needs Patient Instructions: Antibiotic Form, Rivaroxaban (By mouth), Heart Failure (DC), Pain Management (DC), COPD (Chronic Obstructive Pulmonary Disease) (GEN), Community Acquired Pneumonia (DC) Stand Alone Forms: General Discharge Information Follow-up/Referrals: Lita,Calixto Ortega MD [Primary Care Provider] - 2 Weeks Discharge Medications: New amoxicillin-pot clavulanate 875-125 mg tablet 1 tablet PO Q12H 4 Days Qty: 8 0RF azithromycin 250 mg tablet 250 mg PO DAILY 4 Days Qty: 4 0RF furosemide 40 mg Tablet 40 mg PO DAILY 90 Days Qty: 90 0RF prednisone 10 mg tablets,dose pack 40 mg PO DAILY 8 Days Qty: 20 0RF Taper: Prednisone Taper from 60 mg;12 days 40 mg DAILY for 2 Days and 0 Hour 30 mg DAILY for 2 Days and 0 Hour 20 mg DAILY for 2 Days and 0 Hour 10 mg DAILY for 2 Days and 0 Hour Rx Instructions: Taper: Prednisone Taper from 40 mg;8 days 4 tabs 10 mg DAILY for 2 Days and 0 Hour 3 tabs 10 mg DAILY for 2 Days and 0 Hour 2 tabs 10 mg DAILY for 2 Days and 0 Hour 1 tab 10 mg DAILY for 2 Days and 0 Hour Continued losartan 100 mg tablet 50 mg PO DAILY nebivolol [Bystolic] 10 mg tablet 10 mg PO DAILY Xarelto 20 mg tablet 20 mg PO DAILY Trelegy Ellipta 100-62.5-25 mcg blister with device 1 ea inhalation DAILY albuterol sulfate 90 mcg/actuation HFA aerosol inhaler 2 puff inhalation QID PRN (Reason: shortness of breath or wheezing) Qty: 6.7 0RF Date of admission: 02/06/24 21:53 Primary Care Provider: Lita,Calixto Ortega Admitting Provider: Cris Miles Attending physician on admission: Ml Payton Condition: Stable Quality VTE Prophylaxis VTE prophylaxis: pharmacologic ordered Hospitalist MIPS Heart Failure (Exclusion) Patient has history of Heart Transplant or Left Ventricular Assistive Device?: No IF YES, STOP HERE Heart Failure (Qualifier) Patient has current or prior documentation of LVEF less than or equal to 40%, or mod/servere depressed LVSF?: No IF NO, STOP HERE
[2024-02-12 19:08] LABS: Pneumococcal Antigen Urine NOT DETECTED
[2024-02-13 00:49] LABS: Legionella pneumophila Ag Ur NOT DETECTED
[2024-02-13 15:58] LABS: Mycoplasma IgM Antibody Titer 46 U/mL
== END 2024-02-09 13:20 | disposition home or self-care (01) ==
LOC: ANHED 21:19 → ANH3MEDSUR 22:34
PROVIDERS: Student in an Organized Health Care Education/Training Program; Admitting Provider Internal Medicine; Emergency Provider Emergency Medicine; PCP Family Medicine; Visit Provider Nurse Practitioner Acute Care
DX: J18.9 Pneumonia, unspecified organism (principal); J44.0 Chronic obstructive pulmonary disease with (acute) lower respiratory infection; J44.1 Chronic obstructive pulmonary disease with (acute) exacerbation; R09.02 Hypoxemia; I11.0 Hypertensive heart disease with heart failure; I50.9 Heart failure, unspecified; I48.91 Unspecified atrial fibrillation; K21.9 Gastro-esophageal reflux disease without esophagitis; G47.33 Obstructive sleep apnea (adult) (pediatric); Z99.89 Dependence on other enabling machines and devices; Z20.822 Contact with and (suspected) exposure to COVID-19; Z79.01 Long term (current) use of anticoagulants; Z79.51 Long term (current) use of inhaled steroids; Z87.891 Personal history of nicotine dependence; Z98.1 Arthrodesis status; Z96.643 Presence of artificial hip joint, bilateral; Z96.652 Presence of left artificial knee joint; Z85.51 Personal history of malignant neoplasm of bladder; Z86.711 Personal history of pulmonary embolism
CPT/HCPCS: 36415; 71046; 71260; 80053; 82948; 83036; 83605; 83735; 83880; 84145; 85025; 86738; 87040; 87070; 87205; 87449; 87637; 87899; 93005; 94640; 96365; 96375; 99285; A9270; G0378; J0456; J0696; J1815; J2919; Q9967

== ENCOUNTER 2024-04-23 10:10 | Outpatient (CLI) | payer OTHER, SELFPAY ==
--- NOTE | ~2024-04-23 | XR_ITS ---
EXAMINATION: XR chest 2V DATE: 04/23/2024 10:23 INDICATION: COPD. Other specified symptoms and signs involving the circulatory system. TECHNIQUE: PA and lateral views of the chest were obtained. COMPARISON: Chest radiograph dated 02/06/2024 FINDINGS: Hyperexpansion of lungs with flattening of the diaphragm consistent with emphysema better appreciated on prior CT. Gradient of hazy basilar predominant airspace opacities in the lower lung zones with bl unting at the posterior sulci consistent with small bilateral pleural effusions. There is associated mild streaky bibasilar atelectasis. Mild cardiomegaly. Moderate thoracic spondylosis. IMPRESSION: 1. Emphysema. 2. Small bilateral pleural effusions and mild bibasilar atelectasis versus less likely pneumonia. 3. Cardiomegaly. Reviewed, dictated and finalized at location A. ECT OFFICER
== END 2024-04-23 10:11 | disposition home or self-care (01) ==
LOC: MICIMG 10:13
PROVIDERS: PCP Internal Medicine Cardiovascular Disease; Visit Provider Nurse Practitioner Family
DX: J43.9 Emphysema, unspecified (principal); I51.7 Cardiomegaly; J90 Pleural effusion, not elsewhere classified
CPT/HCPCS: 71046

== ENCOUNTER 2024-05-10 12:26 | Outpatient (CLI) | payer OTHER, SELFPAY ==
[2024-05-10 13:42] LABS: Alveolar/Arterial O2 Gradient 47.4 mmHg; Base Excess ABG -2.3 mEq/l (+/-2.0); Device ROOM AIR; Fractional Inspired Oxygen 21 %; HCO3 ABG 20.5 mEq/l (22.0-26.0); Modified Allen's Test Pass; Oxygen Content ABG 20.2 %vol (16.0-22.0); Oxyhemoglobin 92.4 % THb (90.0-100.0); PCO2 ABG 30.6 mmHg (35.0-45.0); PO2 ABG 65.7 mmHg (80.0-100.0); PO2 FiO2 Ratio Arterial Blood 3.13 %; Site Drawn LEFT RADIAL; Total Hemoglobin 15.6 g/dL (12.0-18.0); pH ABG 7.444 (7.350-7.450)
--- NOTE | 2024-05-10 14:17 | PCRCNOTE ---
PT. ARRIVED FOR PFT AND 6 MIN. WALK TESTING COMPLAINING OF SOB AND FATIGUE. PT. HAS HAD A HEAD COLD FOR THE PAST 3 DAYS. TRIED WALKING PT. FOR WALK STUDY AND PT. WAS ONLY ABLE TO WALK 10 FEET WITH OUT HAVING TO SIT DOWN. CALLED [facility] FOR FURTHER INSTRUCTIONS. [facility] ORDERED AND ABG (SEE CHART FOR RESULTS). [facility] RECOMMENDED PT. GO TO ED DUE TO SOB AND BP OF 94/57. PT. DID NOT WISH TO BE SEEN AT ED. STATED IF HE FELT WORSE HE WOULD RETURN TO HOSPITAL FOR EVALUATION. INSTRUCTED PT. TO CALL OUR OFFICE TO RESCHEDULE PFT AND SIX MINUTE WALK WHEN PT. WAS FEELING BETTER.
== END 2024-05-10 12:27 | disposition home or self-care (01) ==
PROVIDERS: PCP Family Medicine; Referring Provider Internal Medicine Cardiovascular Disease; Visit Provider Nurse Practitioner Family
DX: R06.09 Other forms of dyspnea (principal)
CPT/HCPCS: 36600; 82805; 85018

== ENCOUNTER 2024-06-07 07:54 | Outpatient (CLI) | payer OTHER, SELFPAY ==
--- OUTSIDE RECORDS SUMMARY | 2024-06-07 07:57 | XMS_ITS | Clinical Summary ---
Author Organization [facility] [address] Address [address] [place] [address] Care Team Providers Care Hide Handler Name Role Phone Fernando Proctor MD Primary Care Provider [phone] Allergies Active Allergy Reactions Criticality Noted Date Comments Diazepam Mental status changes Low 12/22/2016 Medications omeprazole 20 mg tablet,delayed release (DR/EC) take 1 Tablet by Oral route every day 0 0 5 Active albuterol sulfate (PROAIR RESPICLICK) 90 mcg/actuation aerosol powdr breath activated inhale 2 puff by inhalation route every 4 - 6 hours as needed 0 Inhaler 0 7 Active fluticasone-vilan terol (BREO ELLIPTA) 100-25 mcg/dose diskus inhaler Inhale 1 puff daily. Rinse mouth with water after use to reduce aftertaste and incidence of candidiasis. Do not swallow. Active losartan (COZAAR) 50 mg tablet Take 50 mg by mouth daily Active nebivoloL (BYSTOLIC) 10 mg tabletIndications :Essential hypertension TAKE ONE TABLET BY MOUTH ONCE DAILY 90 tablet 1 Active Xarelto 20 mg tablet TAKE ONE TABLET BY MOUTH ONCE DAILY WITH DINNER 30 tablet 2 Active Active Problems Problem Noted Date Diagnosed Date History of COVID-19 04/03/2020 Chronic obstructive pulmonary disease 04/12/2019 Pulmonary nodule 05/28/2018 PAF (paroxysmal atrial fibrillation) 12/22/2016 Morbid obesity with BMI of 40.0-44.9, adult 12/11 SOB (shortness of breath) 12/22/2016 Ascending aorta dilatation 12/22/2016 Essential hypertension 12/22/2016 Hyperlipidemia LDL goal <100 12/22/2016 ASTER (obstructive sleep apnea) 12/22/2016 History of pulmonary embolus (PE) 12/22/2016 Chronic anticoagulation 12/22/2016 Body mass index 40+ - severely obese 07/06/2016 Overview (08/05/2016): Morbid obesity with BMI of 40.0-44.9, adult Medical History Medical History Date Comments Hx Other Medical PAF, DVT, PE, H TN, bronchitis, COPD, pneumonia, OS; Comments: MAF 01/28/2015 - Family History Medical History Relation Name Comments Diabetes type II Father Diabetes me llitus type 2; Leukemia Mother Leukemia; Relation Name Status Comments Father Mother Social History Tobacco Use Types Packs/Day Years Used Date Smoking Tobacco: Former Cigarettes Q uit: 08/22/2013 Smokeless Tobacco: Never Alcohol Use Standard Drinks/Week Comments Yes 24 (1 standard drink = 0.6 oz pu re alcohol) Personal Safety Answer Date Recorded Getting School Help Needed Not on file 05/26 Sex and Gender Information Value Date Recorded Sex Assigned at Not on file Legal Sex Male 12:41 AM PLASTERER SPOT Gender Identity Not on file Sexual Orientation Not on file Obstetrics History Last Filed Vital Signs Vital Sign Reading Time Taken Comments Blood Pressure 96/58 04/03/2020 8:29 AM PLASTERER SPOT Pulse 71 04/03/2020 8:29 AM PLASTERER SPOT Temperature 36.9 C (98.4 F) 05/18/2020 9:08 AM PLASTERER SPOT Respiratory Rate - - Oxygen Saturation 98% 04/03/2020 8:29 AM PLASTERER SPOT Inhaled Oxygen Concentration - - Weight 118.4 kg (261 lb) 04/03/2020 8:29 AM PLASTERER SPOT Height 175.3 cm (5' 9 ) 04/03/2020 8:29 AM PLASTERER SPOT Body Mass Index 38.54 04/03/2020 8:29 AM PLASTERER SPOT Plan of Treatment Not on file Insurance [employer] Care Teams Hide Handler Relationship Specialty Start Date End Date Fernando Proctor MD [address] [place] [address] PCP - General Family Medicine 04/12/19
--- OUTSIDE RECORDS SUMMARY | 2024-06-07 07:57 | XMS_ITS | Clinical Summary ---
Author Organization [facility] Address [address] [place] [address] Care Team Providers Care Long Lines Operator Name Role Phone Calixto London MD Primary Care Provider [phone] Source Comments [facility],non-owned Affiliates and Associated Physician Practices is amultiple site organization consisting of ambulatory clinics and hospital sitesin [place], [place], [place] and [place]. This disclosure is being madepursuant to the Care Everywhere program and may not contain all information available regarding this patient. Last updated 17.[facility] Allergies Active Allergy Reactions Criticality Noted Date Comments Diazepam Other Low 12/22/2016 Made sleepy Medications * Be aware that medications may not be up to date on this document. Alwaysverify current medications with the patient. Medication Sig Dispensed Refills Start Date End Date Status losartan (Cozaar) 50 MG tablet Take 1 (one) tablet by mouth once daily Hold day of surgery Active nebivolol (Bystolic) 10 MG tablet Take 1 (one) tablet by mouth once daily Ok to take day of surgery 05/17/2023 Active rivaroxaban (Xarelto) 20 MG tablet Take 1 (one) tablet by mouth daily with food Hold 3 days pre op 04/12/2022 Active Trelegy Ellipta 100-62.5-25 MCG/ACT Inhale 1 (one) puff by mouth once daily Ok to take day of surgery 05/17/2023 Active albuterol HFA (Proventil; Ventolin; Proair) 108 (90 Base) MCG/ACT inhaler Inhale 2 (two) puffs by mouth every 6 hours as needed for Shortness of Breath Ok to take day of surgery Bring with day of surgery 06/15/2022 Active Active Problems Problem Noted Date Diagnosed Date Arthritis of right knee 08/22/2023 Pre-operative cardiovascular examination 024 Social History Tobacco Use Types Packs/Day Years Used Date Smoking Tobacco: Former Cigarettes 3 50 0 07/26/1963 - 07/25/2013 Smokeless Tobacco: Never Tobacco Cessation:Counseling Given: Not Answered Alcohol Use Standard Drinks/Week Comments Yes 24 (1 standard drink = 0.6 oz pu re alcohol) 1-2x week AUDIT-C Answer Date Recorded Q1: How often do you have a drink containing alcohol? 4 or more times a week 08/22/2023 Q2: How many drinks containi ng alcohol do you have on a typical day when you are drinking? 1 or 2 Q3: How often do you have si x or more drinks on one occasion? Never 08/22/2023 Sex and Gender Information Value Date Recorded Sex Assigned at Not on file Gender Identity Not on file Sexual Orientation Not on file Last Filed Vital Signs Vital Sign Reading Time Taken Comments Blood Pressure 131/62 08/23/2023 11:19 AM CDT Pulse 107 08/23/2023 12:37 PM CDT with exertion and 77 at rest Temperature 36.6 C (97.9 F) 08/23/2023 11:19 AM CDT Respiratory Rate 20 08/23/2023 11:1 9 AM CDT Oxygen Saturation 87% 08/23/2023 12: 37 PM CDT to 94% during this session Inhaled Oxygen Concentration - - Weight 128.4 kg (283 lb) 08/22/2023 5:4 5 AM CDT Height 175.3 cm (5' 9 ) 08/22/2023 5:45 AM CDT Body Mass Index 41.79 08/22/2023 5:45 AM CDT Plan of Treatment Health Maintenance Due Date Last Done Comments HEPATITIS C SCREENING 07/06/1963 DTAP/TDAP/TD VACCINES (1 - Tdap) 1964 LUNG CANCER SCREENING 07/11/1995 PNEUMOCOCCAL VACCINE 50+ (1 of 1 - PCV) 07/11/1995 ZOSTER VACCINE (1 of 2) 07/11/1995 Respiratory Syncytial Virus (RSV) Vaccine Pt: or over 60 yrs (1 - 1-dose 75+ series) 2020 COVID-19 VACCINE (2023-2 5 season) 2023 INFLUENZA VACCINE (#1) 2023 DEPRESSION SCREENING 03/13/2024 HEPATITIS B VACCINE Aged Out No longe r eligible based on patient's age to complete this topic HIB VACCINE Aged Out No longer eligi ble based on patient's age to complete this topic HPV VACCINE Aged Out No longer eligi ble based on patient's age to complete this topic MENINGOCOCCAL (Group B) VACC INE SHARED DECISION-MAKING Aged Out No longer eligibl e based on patient's age to complete this topic MENINGOCOCCAL GROUPS A/C/Y/W VACCINE Aged Out No longer eligible b ased on patient's age to complete this topic Medical Devices Implanted Type Area Operating System Programmer Device Identifier Shelf Expiration Date Model / Serial / Lot Cmpnt Fem Kn Rt 5 Crcte Rtn Bead Trthln Implanted:Qty: 1 on 08/22/2023 by Harry Rivas MD at [facility] Right: Knee [employer] [id number] 07/26/2028 [id number] / / [id number] Bsplt Tib Trthlm 6 Kn Tritanium Implanted:Qty: 1 on 08/22/2023 by Harry Rivas MD at [facility] Right: Knee [employer] [id number] 05/09/2028 [id number] / / [id number] Ins Tib 6 9mm Kn X3 Crcte Sub Trthln Implanted:Qty: 1 on 08/22/2023 by Harry Rivas MD at [facility] Right: Knee [employer] [id number] 05/09/2028 [id number] -[id number] / / [id number] Cmpnt Ptlr 10mm 36mm Smtr Trthln Implanted:Qty: 1 on 08/22/2023 by Harry Rivas MD at [facility] Right: Knee [employer] [id number] 05/13/2028 [id number] / / [id number] Advance Directives * Full Code (Latest Code Status on File) Date Activated Date Inactivated Comments 08/22/2023 2:32 PM 08/23/2023 2:55 PM Care Teams Long Lines Operator Relationship Specialty Start Date End Date Claixto London MD [address] [place] [address] PCP - General 11/26/13
--- OUTSIDE RECORDS SUMMARY | 2024-06-07 07:57 | XMS_ITS | Referral Summary ---
Author Organization [facility] [address] Address [address] [place] [address] Care Team Providers Care Charter Representative Name Role Phone Fernando Proctor MD Primary Care Provider [phone] Allergies Active Allergy Reactions Criticality Noted Date [...] Morbid obesity with BMI of 40.0-44.9, adult Social History Tobacco Use Types Packs/Day Years [...] on file Legal Sex Male 12:41 AM COLLABORATIVE PHYSICIAN Gender Identity Not on file Sexual Orientation Not on file Last Filed Vital Signs Vital Sign Reading Time Taken Comments Blood Pressure 96/58 04/03/2020 8:29 AM COLLABORATIVE PHYSICIAN Pulse 71 04/03/2020 8:29 AM COLLABORATIVE PHYSICIAN Temperature 36.9 C (98.4 F) 05/18/2020 9:08 AM COLLABORATIVE PHYSICIAN Respiratory Rate - - Oxygen Saturation 98% 04/03/2020 8:29 AM COLLABORATIVE PHYSICIAN Inhaled Oxygen Concentration - - Weight 118.4 kg (261 lb) 04/03/2020 8:29 AM COLLABORATIVE PHYSICIAN Height 175.3 cm (5' 9 ) 04/03/2020 8:29 AM COLLABORATIVE PHYSICIAN Body Mass Index 38.54 04/03/2020 8:29 AM COLLABORATIVE PHYSICIAN Plan of Treatment Not on file Insurance [employer] Care Teams Charter Representative Relationship Specialty Start Date End Date Fernando Proctor MD [address] [place] [address] PCP - General Family Medicine 04/12/19
--- OUTSIDE RECORDS SUMMARY | 2024-06-07 07:57 | XMS_ITS | Clinical Summary ---
Author Organization [facility] Address [address] Rojasn: Epic Prelude ADT JUSTYNA ALVARADO [place]KTOR[place]YA [id number] Care Team Providers Care Electrician Ship Name Role Phone Unavailable Primary Care Provider Unavailabl e Medications amoxicillin-cla vulanate (AUGMENTIN) 875-125 mg tablet Take 1 Tablet by mouth 2 times daily until gone. 20 Tablet 12/20/2021 2:01 PM CDT 2 Active rivaroxaban (Xarelto) 20 mg Tablet Take 1 Tablet (20 mg) by mouth daily. 90 Tablet 2 12/13/2022 10:25 AM CDT 3 Active rivaroxaban (Xarelto) 20 mg Tablet Take 1 Tablet (20 mg) by mouth daily. 90 Tablet 1 3 Active nebivoloL (BYSTOLIC) 10 mg Tablet TAKE ONE TABLET BY MOUTH ONCE DAILY 30 Tablet 11 3 Active rivaroxaban (Xarelto) 20 mg Tablet TAKE 1 TABLET BY MOUTH IN THE EVENING WITH DINNER. 30 Tablet 11 09/13/2023 3:47 PM CDT 3 Active amoxicillin (AMOXIL) 500 mg capsule Take 4 Capsules (2,000 mg) by mouth 1 hour prior to appointment. 12 Capsule 01/16/2023 12:04 PM ROOF BOLTER 3 Active albuterol sulfate HFA 90 mcg/actuation aerosol inhaler INHALE 2 PUFFS BY MOUTH FOUR TIMES A DAY NEEDED 6.7 Gram 1 06/13/2023 9:07 AM CDT 4 06/13/19 25 Active oxyCODONE-aceta minophen (Percocet) 5-325 mg tablet Take 1-2 tablets by mouth every 4-6 hours as needed for pain 60 Tablet 06/25/2023 10:51 AM CDT 4 Active cephALEXin (KEFLEX) 500 mg capsule Take 1 Capsule (500 mg) by mouth 3 times daily. 5 Capsule 06/25/2023 10:51 AM CDT 4 Active diazePAM (Valium) 5 mg tablet Take 1 tablet by mouth every 8 hours as needed. 20 Tablet 06/25/2023 10:51 AM CDT 4 Active aspirin (GLENN) 325 mg tablet Take 1 tablet by mouth once daily 14 Tablet 4 Active oxyCODONE-aceta minophen (Percocet) 5-325 mg tablet Take 1-2 tablets by mouth every 4-6 hours as needed for pain 60 Tablet 09/04/2023 5:55 PM CDT 4 Active diclofenac sodium (VOLTAREN) 50 mg Tablet, Delayed Release (E.C.) Take 1 Tablet (50 mg) by mouth daily. 30 Tablet 09/05/2023 5:18 PM CDT 4 Active rivaroxaban (Xarelto) 20 mg Tablet Take 1 Tablet (20 mg) by mouth every evening with dinner. 30 Tablet 11 05/12/2024 11:31 AM ROOF BOLTER 4 Active cephALEXin (KEFLEX) 500 mg capsule Take 1 Capsule (500 mg) by mouth 3 times daily. 42 Capsule 10/09/2023 6:09 PM CDT 4 Active losartan (COZAAR) 50 mg tablet Take 1 Tablet (50 mg) by mouth daily. 90 Tablet 3 05/12/2024 11:31 AM ROOF BOLTER 4 Active fluticasone-ume clidinium-vilan terol (Trelegy Ellipta) 100-62.5-25 mcg Disk with Device INHALE ONE PUFF BY MOUTH EVERY 24 HOURS; RINSE MOUTH AND SPIT AFTER EACH USE. 180 Each 3 05/12/2024 11:31 AM ROOF BOLTER 4 Active amoxicillin (AMOXIL) 500 mg capsule TAKE 4 CAPSULES BY MOUTH 1 HOUR PRIOR TO APPOINTMENT. 12 Capsule 4 Active furosemide (LASIX) 40 mg tablet Take 1 Tablet (40 mg) by mouth daily. 90 Tablet 4 Active nebivoloL (BYSTOLIC) 10 mg Tablet TAKE ONE TABLET BY MOUTH ONCE DAILY 90 Tablet 3 05/12/2024 11:31 AM ROOF BOLTER Active furosemide (LASIX) 40 mg tablet Take 0.5 Tablets (20 mg) by mouth 2 times daily. May also take 1 extra tablet (40 mg) 1 time daily as needed for shortness of breath. 90 Tablet 4 04/26/2024 3:31 PM ROOF BOLTER 5 Active potassium chloride (KLOR-CON) 10 mEq Extended Release tablet Take 1 Tablet (10 mEq) by mouth daily with breakfast. 90 Tablet 4 04/26/2024 3:31 PM ROOF BOLTER 5 Active semaglutide, weight loss, (Wegovy) 0.25 mg/0.5 mL Pen Injector Inject 0.5 mL (0.25 mg) by subcutaneous injection every 7 days. 2 mL 5 Active spironolactone (ALDACTONE) 25 mg tablet Take 1 Tablet (25 mg) by mouth daily. 30 Tablet 11 05/14/2024 5:20 PM ROOF BOLTER 5 Active empagliflozin (Jardiance) 10 mg tablet Take 1 Tablet (10 mg) by mouth daily 90 Tablet 4 05/23/2024 11:19 AM CDT 5 Active Social History Tobacco Use Types Packs/Day Years Used Date Smoking Tobacco: Never Assessed Sex and Gender Information Value Date Recorded Sex Assigned at Not on file Legal Sex Male 11:17 PM CDT Gender Identity Not on file Sexual Orientation Not on file Plan of Treatment Health Maintenance Due Date Last Done Comments DTAP/TDAP/TD VACCINES (1 - Tdap) 1964 PNEUMOCOCCAL VACCINE 50+ YEARS (1 of 1 - PCV) 07/10/18 96 ZOSTER VACCINE (1 of 2) 07/11/1995 RSV VACCINE (60+ or ) (1 - 1-dose 75+ series) 2020 INFLUENZA VACCINE (#1) 2023 Insurance RX [employer] RX Member Subscriber Plan / Payer (Ef fective for All Dates) Name:NABOR DURBIN Relation to Subscriber:Spouse Name:NABOR DURBIN Payer ID:Not on file Type:RX Commercial Address: [address] [employer] Commercial RX DOW PLANS (INTERNAL) [facility]
--- NOTE | 2024-06-07 12:40 | WPDPFTINT ---
PFT Procedure Performed PFT Procedure Performed Spirometry with Pre/Post Bronchodilator Plethysmography (Lung Vol) Diffusing Cap (DLCO) Flow Vol Loop PFT Interpretation Lung volumes were assessed using body plethysmography. The expiratory reserve volume is reduced, likely due to obesity, while the other lung volumes are normal. Spirometry revealed normal expiratory flow rates and a borderline normal FEV1/FVC ratio of 61%. There was no significant improvement in expiratory flow rates following bronchodilator administration. The lung diffusion capacity is moderately reduced at 54% of the predicted value. This reduction, combined with a normal DLCO/VA ratio, suggests the possibility of alveolar capillary structure loss, as seen in emphysema or interstitial lung disease. The flow volume loop is unremarkable. Impression: Spirometry lung volumes are within the normal range. Moderately reduced lung diffusion capacity.
--- NOTE | 2024-06-07 12:43 | WPDSIXMINUTE ---
Six Minute Walk Procedure Procedure Performed Pulmonary Stress Test (6 min walk) Six Minute Walk Six Minute Walk: This 6 minute walk test was carried out with the patient breathing ambient air. The pre walk baseline oxyhemoglobin saturation was 95%. The patient walked 152 m with no stops during testing. During the walk the oxyhemoglobin saturation remained in the range of 94% to 96%. Impression: No evidence of oxyhemoglobin desaturation on this testing.
== END 2024-06-07 07:55 | disposition home or self-care (01) ==
PROVIDERS: PCP Family Medicine; Visit Provider Nurse Practitioner Family
DX: J44.9 Chronic obstructive pulmonary disease, unspecified (principal)
CPT/HCPCS: 94060; 94618; 94726; 94729

== ENCOUNTER 2025-01-10 09:12 | Outpatient (RCR) | payer OTHER, SELFPAY ==
[2025-01-10 09:00] VITALS: BMI 39.8
--- NOTE | 2025-01-10 09:26 | WNDPHOTO ---
PHOTO ONLY - See Nursing Notes and/ or assessments for documentation.
== END 2025-02-25 10:28 | disposition home or self-care (01) ==
LOC: ANHWOC 09:12
PROVIDERS: PCP Family Medicine; Visit Provider Nurse Practitioner
DX: T63.331D Toxic effect of venom of brown recluse spider, accidental (unintentional), subsequent encounter (principal)
CPT/HCPCS: 99212; G0463